=== PATIENT | male | born 1945 | race Caucasian/White ===

== ENCOUNTER → 2020-02-02 14:16 | Outpatient (BNVA) | payer MEDICARE, SELFPAY | PROVIDERS: Visit Provider Nurse Practitioner | DX: F33.1 Major depressive disorder, recurrent, moderate (principal) | CPT/HCPCS: 99214 ==

== ENCOUNTER → 2020-04-26 08:26 | Outpatient (BNVA) | payer MEDICARE, SELFPAY | PROVIDERS: Visit Provider Nurse Practitioner | DX: F33.1 Major depressive disorder, recurrent, moderate (principal) | CPT/HCPCS: 99213 ==

== ENCOUNTER → 2020-07-25 08:35 | Outpatient (BNVA) | payer MEDICARE, SELFPAY | PROVIDERS: Visit Provider Nurse Practitioner | DX: F33.1 Major depressive disorder, recurrent, moderate (principal) | CPT/HCPCS: 99213 ==

== ENCOUNTER → 2020-10-19 07:59 | Outpatient (BNVA) | payer MEDICARE, SELFPAY | PROVIDERS: Visit Provider Nurse Practitioner | DX: F33.1 Major depressive disorder, recurrent, moderate (principal) | CPT/HCPCS: 99213 ==

== ENCOUNTER → 2021-01-16 08:46 | Outpatient (BNVA) | payer MEDICARE, SELFPAY | PROVIDERS: Visit Provider Nurse Practitioner | DX: F33.1 Major depressive disorder, recurrent, moderate (principal) | CPT/HCPCS: 99214 ==

== ENCOUNTER → 2021-03-18 12:55 | Outpatient (BNVA) | payer MEDICARE, SELFPAY | PROVIDERS: Visit Provider Psychiatry & Neurology Psychiatry | DX: F33.1 Major depressive disorder, recurrent, moderate (principal) | CPT/HCPCS: 99215 ==

== ENCOUNTER → 2021-06-24 15:29 | Outpatient (BNVA) | payer MEDICARE, SELFPAY | PROVIDERS: Visit Provider Psychiatry & Neurology Psychiatry | DX: F33.1 Major depressive disorder, recurrent, moderate (principal); R41.3 Other amnesia | CPT/HCPCS: 99214 ==

== ENCOUNTER → 2021-08-22 15:03 | Outpatient (BNVA) | payer MEDICARE, SELFPAY | PROVIDERS: Visit Provider Psychiatry & Neurology Psychiatry | DX: F33.1 Major depressive disorder, recurrent, moderate (principal); R41.3 Other amnesia | CPT/HCPCS: 99214 ==

== ENCOUNTER → 2021-11-14 14:22 | Outpatient (BNVA) | payer MEDICARE, SELFPAY | PROVIDERS: Visit Provider Psychiatry & Neurology Psychiatry | DX: F33.1 Major depressive disorder, recurrent, moderate (principal); R41.3 Other amnesia | CPT/HCPCS: 99214 ==

== ENCOUNTER → 2022-01-30 14:18 | Outpatient (BNVA) | payer MEDICARE, SELFPAY | PROVIDERS: Visit Provider Psychiatry & Neurology Psychiatry | DX: F33.1 Major depressive disorder, recurrent, moderate (principal); R41.3 Other amnesia | CPT/HCPCS: 99214 ==

== ENCOUNTER → 2022-05-01 14:53 | Outpatient (BNVA) | payer MEDICARE, SELFPAY | PROVIDERS: Visit Provider Psychiatry & Neurology Psychiatry | DX: F33.1 Major depressive disorder, recurrent, moderate (principal); R41.3 Other amnesia | CPT/HCPCS: 99214 ==

== ENCOUNTER → 2023-10-05 13:04 | Outpatient (BNVA) | payer OTHER, SELFPAY | PROVIDERS: PCP Family Medicine; Referring Provider Family Medicine; Visit Provider Nurse Practitioner Family | DX: L57.0 Actinic keratosis (principal); L21.8 Other seborrheic dermatitis; Z85.828 Personal history of other malignant neoplasm of skin; L57.8 Other skin changes due to chronic exposure to nonionizing radiation; L81.4 Other melanin hyperpigmentation | CPT/HCPCS: 17000; 99204 ==

== ENCOUNTER 2024-01-25 07:41 | Emergency (ER) | payer OTHER, SELFPAY ==
--- NOTE | 2024-01-25 07:51 | XR_ITS ---
WS: [id number] Exam: XR chest 1V portable [id number] Date/Time of Exam: 01/25/2024 8:36 AM Reason For Exam: dyspnea/cough No priors. The lungs are clear and fully expanded. Heart size top limits normal. The mediastinum is normal in co ntour for technique. No pleural effusions. Several old LEFT rib fractures. Deformity of the distal LE FT clavicle. Degenerative change and levoscoliosis of the T-spine. IMPRESSION: 1. No acute cardiopulmonary finding.
[2024-01-25 07:54] VITALS: BP 223/126; PULSE 82; TEMP 36.3; O2SAT 98; BMI 20.9
--- NOTE | 2024-01-25 08:00 | ECG_ITS ---
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 Measurements Intervals Nunda Rate: 94 P: 0 MN: 0 QRS: 30 QRSD: 150 T: -3 QT: 392 QTc: 490 Interpretive Statements ATRIAL FIBRILLATION RIGHT BUNDLE BRANCH BLOCK [120+ ms QRS DURATION, UPRIGHT V1, 40+ ms S IN I/aVL/V4/V5/V6] No previous ECG available for comparison Electronically Signed On 01-26-2024 0:36:58 OPERATIONS ARCHITECT by Ale Clements M.D. [id number]
--- NOTE | 2024-01-25 08:01 | ED_ITS ---
HPI - General Adult 2 General: Chief complaint: Extremity Problem,Nontraumatic Stated complaint: swelling in feet and legs Time Seen by Provider: 01/25/24 07:51 Source: patient Mode of arrival: ambulatory History of Present Illness: 78-year-old male presents emergency room complaining of bilateral leg swelling and discomfort in his legs been discolored as well as been going on for over a month. He has a history of hypertension states he has a history of Lyme disease has a lot of generalized aches and pains no recent change in medications. States the discomfort is improved now he has been taking all his medications as prescribed. He is a smoker. Associated symptoms: Deny chest pain, dyspnea or rash Review of Systems 2 Const: Denies: fever(s) or chills Card: Denies: chest pain Resp: Denies: dyspnea GI: Denies: abdominal pain : Denies: dysuria, urinary frequency or urinary urgency Musc: Denies: neck pain or back pain Skin/Breast: Denies: rash PFSH ED 2 PFSH: Medical History Psychiatric care Memory deficit Major depressive disorder, recurrent, moderate Social History Smoking and tobacco/nicotine status: current every day tobacco/nicotine user cigarettes Physical Exam 2 Const: COMMON NORMALS: no acute distress GENERAL APPEARANCE: cooperative and comfortable ORIENTATION/CONSCIOUSNESS: Yes awake, Yes oriented to person, Yes oriented to place and Yes oriented to time HENMT: COMMON NORMALS: normocephalic, atraumatic and hearing grossly normal bilaterally HEAD & SCALP: normocephalic and atraumatic Resp: COMMON NORMALS: normal respiratory effort, No retractions, No use of accessory muscles and clear to auscultation bilaterally AUSCULTATION: clear to auscultation bilaterally Cardio: COMMON NORMALS: regular rate, regular rhythm and No murmurs present (Cardio) RATE: regular rate RHYTHM: regular rhythm GI: COMMON NORMALS: Soft to palpation and No hepatosplenomegaly present A USCULTATION: Yes normoactive bowel sounds PALPATION: Yes Soft to palpation, No Tenderness to palpation present (GI), No Guarding due to palpation present (GI) and Yes No hepatosplenomegaly present Extremity: COMMON NORMALS: normal to inspection, capillary refill normal and no calf tenderness OTHER: Venous stasis edema with some drying and scaling of the skin. It still blanches pulses still weakly palpable but difficult because of the swelling. When feet are elevated the violaceous discoloration resolves quickly when placed in a dependent position recurs within seconds. No skin induration or redness or erythema. Neuro: SENSORIUM/ORIENTATION: Yes oriented to person, Yes oriented to place and Yes oriented to time Skin: COMMON NORMALS: no rashes or lesions noted GENERAL SKIN EXAM: no rashes or lesions noted Course 2 Vital Signs: Vital signs: Vital Signs Temperature 97.4 F L 01/25/24 07:54 Pulse Rate 123 H 01/25/24 08:42 Blood Pressure 205/155 01/25/24 08:42 Pulse Oximetry 96 01/25/24 08:42 Oxygen Delivery Me thod Room Air 01/25/24 08:42 MDM - General Adult Medical Decision Making Discoloration to his feet resolves relatively quickly with his feet elevated and when return to a dependent position recurs. He has good arterial blood flow on his segmental measurements by ultrasound. No sign of overt decompensated heart failure at this time he is only been taking Lasix occasionally. Increase to 40 mg daily for the next 5 to 7 days before the end of the week he should follow-up with his primary care doctor for repeat BMP and reevaluate. He is concerned that he had a cellulitis there is no evidence of cellulitis at this time. He does have A-fib but his rate is well-controlled. Patient refused to allow us to treat his blood pressure discussed with him that it is critically high he does not feel it is significant and refuses offers for medication. Encouraged follow-up with his primary care doctor Medical Records I reviewed the patient's medical records. Lab Data I reviewed the patient's lab results. 01/25/24 08:12 01/25/24 08:12 Laboratory Results WBC 7.62 10^3/uL (3.29-11.43) 01/25/24 08:12 RBC 4.37 10^6/uL (3.85-5.65) 01/25/24 08:12 Hgb 14.70 g/dL (11.27-16.99) 01/25/24 08:12 Hct 44.8 % (37-53) 01/25/24 08:12 MCV 102.5 fl (82-101) H 01/25/24 08:12 MCH 33.6 pg (27-33) H 01/25/24 08:12 MCHC 32.8 g/dL (30-55) 01/25/24 08:12 RDW 12.4 % (12.1-15.1) 01/25/24 08:12 Plt Count 232 10^3/cmm (157-399) 01/25/24 08:12 MPV 10.4 fL (7.4-10.4) 01/25/24 08:12 Neut % (Auto) 60.7 % 01/25/24 08:12 Lymph % (Auto) 22.2 % 01/25/24 08:12 Morrison % (Auto) 12.2 % 01/25/24 08:12 Eos % (Auto) 3.7 % 01/25/24 08:12 Baso % (Auto) 0.5 % 01/25/24 08:12 Neut # (Auto) 4.63 10^3/uL (1.8-7.7) 01/25/24 08:12 Lymph # (Auto) 1.7 10^3/uL (0.8-4.8) 01/25/24 08:12 Morrison # (Auto) 0.9 10^3/uL (0.2-0.9) 01/25/24 08:12 Eos # (Auto) 0.3 10^3/uL (0.0-0.8) 01/25/24 08:12 Baso # (Auto) 0.0 10^3/uL (0.0-0.1) 01/25/24 08:12 Nucleated RBC % (auto) 0 % 01/25/24 08:12 Nucleated RBCs # 0.0 /100WBC 01/25/24 08:12 Sodium 132 mmol/L (136-145) L 01/25/24 08:12 Potassium 3.9 mmol/L (3.5-5.1) 01/25/24 08:12 Chloride 94 mmol/L (98-107) L 01/25/24 08:12 Carbon Dioxide 29 mmol/L (22-29) 01/25/24 08:12 Anion Gap 12.9 (5-19) 01/25/24 08:12 BUN 19 mg/dL (8-23) 01/25/24 08:12 Creatinine 0.9 mg/dL (0.7-1.2) 01/25/24 08:12 GFR Calculation Not Reportable 01/25/24 08:12 Glucose 203 mg/dL (65-115) H 01/25/24 08:12 Calculated Osmolality 282 mOsm/kg (285-295) L 01/25/24 08:12 Calcium 9.9 mg/dL (8.5-10.5) 01/25/24 08:12 Total Bilirubin 0.4 mg/dL (0.15-1.2) 01/25/24 08:12 AST 25 U/L (0-40) 01/25/24 08:12 ALT 21 U/L (0-41) 01/25/24 08:12 Alkaline Phosphatase 105 U/L (40-130) 01/25/24 08:12 NT-Pro-B Natriuret Pep 2144 pg/mL (0-450) H 01/25/24 08:12 Total Protein 7.0 g/dL (6.6-8.7) 01/25/24 08:12 Albumin 4.1 g/dL (3.5-5.2) 01/25/24 08:12 Globulin 2.9 g/dL (1.3-4.6) 01/25/24 08:12 All radiology interpretation(s) finalized by discharge Discharge Plan Discharge Patient Disposition: Home Clinical Impression: Severe uncontrolled hypertension, Stasis edema of both lower extremities Condition: Stable Prescriptions: New furosemide 40 mg tablet 40 mg PO DAILY Qty: 30 0RF Discontinued furosemide [Lasix] 20 mg Tablet 20 mg PO DAILY PRN (Reason: Edema) No Action lisinopril 20 mg tablet 10 mg PO DAILY hydrocodone-acetaminophen 10-325 mg tablet 1 tab PO Q6H MDD 4 tabs PRN (Reason: Pain) metoprolol succinate 100 mg tablet extended release 24 hr 100 mg PO DAILY dextroamphetamine-amphetamine [Adderall] 20 mg tablet 20 mg PO TID 30 Days Qty: 90 0RF Hold Instructions: shortage aspirin 325 mg Tablet 325 mg PO DAILY levothyroxine 75 mcg Tablet 75 mcg PO DAILY Flonase 50 mcg/actuation Malcolm,Suspension 2 spray INTRANASAL DAILY Rx Instructions: administer into each nostril Claritin 10 mg Tablet 10 mg PO DAILY Eliquis 5 mg Tablet 5 mg PO BID alogliptin 6.25 mg Tablet 6.25 mg PO QAM Discharge Orders: Discharge ED (Routine); Ordered 01/25/24 Ordered By: Carlos Marie Referrals: Jodie Silva MD [Primary Care Provider] - Discharge Diet: Usual diet Discharge Activity: Increase activity as tolerated Patient Instructions: Opioid Safety, Pain Management Activity Restrictions/Additional Instructions: Thank you for choosing [facility] for your healthcare needs today. Please realize this is an emergency room and that we are providing you with a medical screening exam and this may not be complete and all inclusive of all the testing and or work up that you may need to determine your ailment or severity of your illness. It is very important that you follow up as instructed or that you return to the Emergency Department should you have concerns or if your condition changes or worsens in any way. You were seen today for chronic swelling in her lower extremities and discoloration of your lower extremities. The discoloration and the swelling are result of dependent edema. The discoloration improves rapidly when your feet are elevated and recurs almost immediately when they are returned to a dependent position. Arterial Dopplers showed good blood flow bilaterally in your lower extremities. Recommend you increase your Lasix to 40 mg daily and follow-up with your doctor within the next week for repeat evaluation and repeat of a basic metabolic profile. Additionally while you are in the emergency room your blood pressure was critically elevated. You declined to allow us to treat that. Recommend that you follow-up with your doctor to reevaluate blood pressure management within the next week. Coding Level of Care Code ED Manager Clinical for Walter Trujillo
--- NOTE | 2024-01-25 08:16 | USCV_ITS ---
Stephen Menjivar Age: 78 Gender: M : 1945 Exam Date: 01/25/2024 08:44 Ordering Phys: Carlos Marie DO Technologist: Exam Location: [facility] [place] Indication: cyanosis, pain RIGHT LEFT Brachial 170.00 mmHg Brachial 170.00 mmHg Pressure (mmHg) Waveform Pressure (mmHg) Waveform 160.00 SPICE GRINDER 155.00 155.00 DPA 150.00 0.94 Ankle/Brachial Index 0.91 FINDINGS Resting LOTTIE of 0.94 on the right side and 0.91 on the left CONCLUSIONS 1. Normal CBD on the right side 2. Slightly diminished resting LOTTIE on the left side of 0.91, suggesting mild peripheral artery disease Dr Ale Clements MD [facility] (Electronically Signed) Final Date: 27 January 2024 09:13 S
[2024-01-25 08:25] LABS: Basophils % 0.5 %; Eosinophils # 0.3 10^3/uL (0.0-0.8); Eosinophils % 3.7 %; Hematocrit 44.8 % (37-53); Lymphocytes # 1.7 10^3/uL (0.8-4.8); Lymphocytes % 22.2 %; Mean Corpuscular HGB Conc 32.8 g/dL (30-55); Mean Corpuscular Hemoglobin 33.6 pg (27-33); Mean Corpuscular Volume 102.5 fl (82-101); Mean Platelet Volume 10.4 fL (7.4-10.4); Monocytes # 0.9 10^3/uL (0.2-0.9); Monocytes % 12.2 %; Neutrophils # 4.63 10^3/uL (1.8-7.7); Neutrophils % 60.7 %; Nucleated Red Blood Cells % 0 %; Platelet Count 232 10^3/cmm (157-399); Red Blood Count 4.37 10^6/uL (3.85-5.65); Red Cell Distribution Width 12.4 % (12.1-15.1); White Blood Count 7.62 10^3/uL (3.29-11.43)
[2024-01-25 08:42] VITALS: BP 205/155; PULSE 123; O2SAT 96
--- NOTE | 2024-01-25 08:55 | PC.PHAR ---
Addendum entered by Lacie Howell 01/25/24 10:51: [facility] was discharged-zyprexa 20mg take 1/2 tab (10mg) daily -lisinopril 40mg take 1/2 tab (20mg) daily-lasix 20mg take 1/2 tab (10mg) daily was on the pts [facility] med list pt states he takes those medications entered but va list is different than what pt states he takes-pt states he takes metoprolol succinate er 100mg daily that medication is not on the va med list-va list has zyprexa 20mg take 1/2 tab (10mg) daily Original Note: pt states he takes care of his own medications-pt states he takes the medications entered -faxed [facility] for med list but entered what pt states he takes-waiting for [facility] to fax med list
[2024-01-25 09:00] LABS: Alanine Aminotransferase 21 U/L (0-41); Albumin Level 4.1 g/dL (3.5-5.2); Alkaline Phosphatase 105 U/L (40-130); Anion Gap 12.9 (5-19); Aspartate Amino Transferase 25 U/L (0-40); Blood Urea Nitrogen 19 mg/dL (8-23); Calcium 9.9 mg/dL (8.5-10.5); Carbon Dioxide 29 mmol/L (22-29); Chloride 94 mmol/L (98-107); Globulin 2.9 g/dL (1.3-4.6); Glucose 203 mg/dL (65-115); NT Pro B Type Natriuretic Pept 2144 pg/mL (0-450); Osmolality Calculated 282 mOsm/kg (285-295); Potassium 3.9 mmol/L (3.5-5.1); Sodium 132 mmol/L (136-145); Total Bilirubin 0.4 mg/dL (0.15-1.2)
== END 2024-01-25 09:25 | disposition home or self-care (01) ==
PROVIDERS: Emergency Provider Family Medicine; PCP Family Medicine
DX: I87.303 Chronic venous hypertension (idiopathic) without complications of bilateral lower extremity (principal); I10 Essential (primary) hypertension; Z79.82 Long term (current) use of aspirin; F17.210 Nicotine dependence, cigarettes, uncomplicated
CPT/HCPCS: 36415; 71045; 80053; 83880; 85025; 93005; 93922; 99285

== ENCOUNTER 2025-09-24 15:29 | Inpatient (IN) | payer OTHER, SELFPAY ==
--- OUTSIDE RECORDS SUMMARY | 2025-09-20 10:00 | XMS_ITS ---
Author Organization [facility] Address [address] [place] [address] Care Team Providers Care Zinc Plater Name Role Phone García Gonzalez MD Primary Care Provider Unavail Francisco Sung Unavailable [phone] Allergies Allergen (clinical drug ingredient) Drug/Non Drug Allergy documented on EMR Reaction Allergy Type Onset Date Status NKDA : NO KNOWN DRUG ALLERGIES Unknown Drug Allergy Active Results Component Value Reference Range Flag Notes Urine Confirmation Panel (in strument) - [id number] Reviewed date:09/22/2025 12:43:06 PM Interpretation: Performing Lab: Notes/Report: 6-Acetylmorphine 0 <6 ng/mL N This av t was developed and its performance characteristics determined by [facility]. It has not been cleared or approved by the U.S. Food and Drug Administration. 7-Aminoclonazepam 0 <60 ng/mL N This te st was developed and its performance characteristics determined by [facility]. It has not been cleared or approved by the U.S. Food and Drug Administration. Alprazolam 0 <60 ng/mL N This test was developed and its performance characteristics determined by [facility]. It has not been cleared or approved by the U.S. Food and Drug Administration. Amphetamine 0 <75 ng/mL N This test was developed and its performance characteristics determined by [facility]. It has not been cleared or approved by the U.S. Food and Drug Administration. aOH-Alprazolam 0 <60 ng/mL N This test was developed and its performance characteristics determined by [facility]. It has not been cleared or approved by the U.S. Food and Drug Administration. Buprenorphine 0.0 <7.5 ng/mL N This test w as developed and its performance characteristics determined by [facility]. It has not been cleared or approved by the U.S. Food and Drug Administration. Norbuprenorphine 0.0 <37.5 ng/mL N This te st was developed and its performance characteristics determined by [facility]. It has not been cleared or approved by the U.S. Food and Drug Administration. Carisoprodol 0 <75 ng/mL N This test wa s developed and its performance characteristics determined by [facility]. It has not been cleared or approved by the U.S. Food and Drug Administration. Codeine 0 <75 ng/mL N This test was developed and its performance characteristics determined by [facility]. It has not been cleared or approved by the U.S. Food and Drug Administration. EDDP 0 <75 ng/mL N This test was developed and its performance characteristics determined by [facility]. It has not been cleared or approved by the U.S. Food and Drug Administration. Fentanyl 0 <6 ng/mL N This test was developed and its performance characteristics determined by [facility]. It has not been cleared or approved by the U.S. Food and Drug Administration. Hydrocodone 0 <75 ng/mL N This test was developed and its performance characteristics determined by [facility]. It has not been cleared or approved by the U.S. Food and Drug Administration. Hydromorphone 0 <75 ng/mL N This test w as developed and its performance characteristics determined by [facility]. It has not been cleared or approved by the U.S. Food and Drug Administration. Lorazepam 0 <60 ng/mL N This test was developed and its performance characteristics determined by [facility]. It has not been cleared or approved by the U.S. Food and Drug Administration. MDMA 0 <75 ng/mL N This test was developed and its performance characteristics determined by [facility]. It has not been cleared or approved by the U.S. Food and Drug Administration. Meperidine 0.0 <37.5 ng/mL N This test was developed and its performance characteristics determined by [facility]. It has not been cleared or approved by the U.S. Food and Drug Administration. Meprobamate 0 <75 ng/mL N This test was developed and its performance characteristics determined by [facility]. It has not been cleared or approved by the U.S. Food and Drug Administration. Methamphetamine 0 <75 ng/mL N This test was developed and its performance characteristics determined by [facility]. It has not been cleared or approved by the U.S. Food and Drug Administration. Methadone 0 <75 ng/mL N This test was developed and its performance characteristics determined by [facility]. It has not been cleared or approved by the U.S. Food and Drug Administration. Morphine 0 <75 ng/mL N This test was developed and its performance characteristics determined by [facility]. It has not been cleared or approved by the U.S. Food and Drug Administration. Nordiazepam 0 <60 ng/mL N This test was developed and its performance characteristics determined by [facility]. It has not been cleared or approved by the U.S. Food and Drug Administration. Norfentanyl 0 <6 ng/mL N This test was developed and its performance characteristics determined by [facility]. It has not been cleared or approved by the U.S. Food and Drug Administration. Normeperidine 0.0 <37.5 ng/mL N This test was developed and its performance characteristics determined by [facility]. It has not been cleared or approved by the U.S. Food and Drug Administration. O-desmethyltramadol 0 <75 ng/mL N This test was developed and its performance characteristics determined by [facility]. It has not been cleared or approved by the U.S. Food and Drug Administration. Oxazepam 0 <60 ng/mL N This test was developed and its performance characteristics determined by [facility]. It has not been cleared or approved by the U.S. Food and Drug Administration. Oxycodone >2500.0 <37.5 ng/mL > This test was developed and its performance characteristics determined by [facility]. It has not been cleared or approved by the U.S. Food and Drug Administration. Oxymorphone 591 <75 ng/mL H This test was developed and its performance characteristics determined by [facility]. It has not been cleared or approved by the U.S. Food and Drug Administration. Phencyclidine 0.0 <7.5 ng/mL N This test w as developed and its performance characteristics determined by [facility]. It has not been cleared or approved by the U.S. Food and Drug Administration. Tapentadol 0.0 <37.5 ng/mL N This test was developed and its performance characteristics determined by [facility]. It has not been cleared or approved by the U.S. Food and Drug Administration. Temazepam 0 <60 ng/mL N This test was developed and its performance characteristics determined by [facility]. It has not been cleared or approved by the U.S. Food and Drug Administration. Tramadol 0 <75 ng/mL N This test was developed and its performance characteristics determined by [facility]. It has not been cleared or approved by the U.S. Food and Drug Administration. Norhydrocodone 0 <75 ng/mL N This test was developed and its performance characteristics determined by [facility]. It has not been cleared or approved by the U.S. Food and Drug Administration. Noroxycodone >2500 <38 ng/mL > This test wa s developed and its performance characteristics determined by [facility]. It has not been cleared or approved by the U.S. Food and Drug Administration. Pregabalin 0 <225 ng/mL N This test was developed and its performance characteristics determined by [facility]. It has not been cleared or approved by the U.S. Food and Drug Administration. Gabapentin 0 <225 ng/mL N This test was developed and its performance characteristics determined by [facility]. It has not been cleared or approved by the U.S. Food and Drug Administration. Benzoylecgonine 0.0 <37.5 ng/mL N This av t was developed and its performance characteristics determined by [facility]. It has not been cleared or approved by the U.S. Food and Drug Administration. 4-Hydroxy Xylazine 0 <25 ng/mL N This t est was developed and its performance characteristics determined by [facility]. It has not been cleared or approved by the U.S. Food and Drug Administration. Urine Drug Screen (cup read) - 37725 Reviewed date:09/20/2025 03:34:15 PM Interpretation: Performing Lab: Notes/Report: OXY + REASON FOR VISIT [id number]; 2 Months. UDS. Medications Medication SIG (Take, Route, Frequency, Duration) Notes Start Date End Date Status Metoprolol Tartrate *Pick strength-form from [employer] for eRX* Active oxyCODONE HCl 15 MG Tablet 0.5 tablet Orally every 4 hrs; Duration: 30 days As needed max 3/day Fill on 08-25-2025 08/10/202509/24/202 5 Active Levothyroxine Sodium 100 MCG Tablet 1 tablet in the morning on an empty stomach Orally Once a day Active Dextroamphetamine *Pick strength-form from [employer] for eRX* Not-Taking Glucosamine-Chondroitin *Pick strength-form from [employer] for eRX* Not-Taking Lisinopril 20 MG Tablet 1 tablet Orally Once a day Active SITagliptin 50 MG Tablet 1 tablet Orally Once a day Active PreserVision AREDS A ctive hydroCHLOROthiazide 50 MG Tablet 1 tablet in the morning Orally Once a day Active Social History Sex Assigned At : Social History Observation Description Sex Assigned At Male Social History Additional Details Category Social Info Options Details Migrated Social History Migrated Social History Alcoholic beverages? - No, Currently on disability? - Yes, I am interested in quitting. - No, Smoking - 12/03 PPD, Smoking status (MU) - Current every day smoker, Working currently? 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 ; Pain in left hip M25.552 and halfway (current) use of opiate analgesic Z79.891 Assessments Encounter Date Diagnosis (ICD Code) Assessment Notes Treatment Notes Treatment Clinical Notes Section Notes 09/20/2025 Spondylosis without myelopathy or radiculopathy, cervical region (ICD-10 - M47.812) 09/20/2025 Chronic pain syndrome (ICD-10 - G89.4) Refill oxyCODONE HCl Tablet, 15 MG, 0.5 tablet, Orally, every 4 hrs, As needed max 3/day, 30 days, 90 Tablet, Start Date: 09/22/2025, Stop Date: 10/22/2025, Refills 0, Notes to Pharmacist: Early fill 09/22/25 due to weekend pharmacy closure 09/20/2025 Spondylosis without myelopathy or radiculopathy, 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) 09/20/2025 Spondylosis without myelopathy or radiculopathy, lumbosacral region (ICD-10 - M47.817) 09/20/2025 Pain in left hip (ICD-10 - M25.552) 09/20/2025 halfway (current) use of opiate analgesic (ICD-10 - Z79.891) RECOMMEND URINE TESTING TODAY Urine drug screening will be performed today to monitor compliance with opioid therapy or to serve as a baseline screen for a patient who may be a candidate for opioid therapy in the future, pending UDS results. We will monitor with in-office testing (rapid testing) today and review the results prior to dispensing prescription. All positive results will be sent for quantitative analysis to ensure accuracy and quantify amounts. Any expected positive results that return negative will also be sent for quantitative analysis. Any questionable read or any medication we cannot test for in the office confidently will be sent for quantitative analysis, as well. Patient has been made aware of this policy and agrees to abide by our urine testing policy. 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 We will monitor with in-office testing (rapid testing) today and review the results prior to dispensing prescription. All positive results will be sent for quantitative analysis to ensure accuracy and quantify amounts. Any expected positive results that return negative will also be sent for quantitative analysis. Any questionable read or any medication we cannot test for in the office confidently will be sent for quantitative analysis, as well. Patient has been made aware of this policy and agrees to abide by our urine testing policy. Next Appt Details Provider Name:Jeanette Job Babb, 10/31/2025 02:20:00 PM, [address] [place] [address], [place], [phone], History and Physical Notes * HPI (History of Present Illness) Category Sub-Category Detail Notes Category Not es Provider Note Mr. Menjivar returns to clinic today for a 2 month follow-up evaluation of the continuation of medical management and specifically to review response to current medication change trial. Patient presents today specifically to evaluate response to current medication management regimen change trial. Patient over this clinic interval is proceeded with conversion from utilization of hydrocodone 10/325 every 6 hours as needed not to exceed 4 tablets/day to the utilization of oxycodone 15 mg tablets utilized as 1/2 tablet every 4 hours as needed not to exceed 3 tablets/day. Patient returns today noting that this regimen has been lacking in strength and duration, and he is requesting an increase to 4 tablets a day. He was advised this is not in his best interest at this time. Patient notes that he has been dismissed from the clinic he was receiving his dextroamphetamine/amphet amine prescription from and he is struggling greatly. He reports that he was dismissed due to missing too many office visits. He was advised to follow-up with [place] [facility] in regard to this. Patient is a very disoriented today and appears to be foggy minded and confused. Patient was greatly inquired about this and notes that he was managing well. Again today discussed with patient alternatives of ongoing therapy including consideration of trials of extended release medications. After considering the options available patient elects to continue with current medications at present level. Otherwise patient notes no significant recent change in his general medical condition, and his underlying complaints, or in his response to current medication management regimen over most recent clinic interval. Patient again notes that his desire to continue with medication management is to maintain his functional status as long as possible. Patient's information [place] prescription monitoring program remains consistent. UDS from most recent clinic visit as well as UDS today are noted to be consistent at point of service testing. UDS today will be sent to reference lab for routine confirmation. Medication counts indicate consistency with current dosing schedules. Patient will return to clinic in 2 month to evaluate response to current medication dose increase trial and attempt to establish and monitor stable medical management. Pain Details Pain Location Neck,Mid-Back,Le ft Shoulder,Right Shoulder,Left Knee,Lower Back,Left Leg,Left Foot,Right Foot Quality Sharp/Stabbing,Dull/ Ache,Pins/Cecil,Throbbing,Burn/Tingle Severity of pain at its worst 10 Severity of pain at its best 3 Severity of average pain 4 Severity of pain right now 3 Severity of pain on medication 4 When did you last take your pain medicine 20 Sep 2025, 1320, oxycodone Medication Details Do you have a lock b ox or safe place for medication away from minors and/or others? Yes , Do you have any leftover pain medication building up at your house? No Do you understand that pain medication c an be addicting and can cause overdose? Yes Do you feel you can REDUCE the amount of medication you take today? No Opioid Assessment Tools Pill Count 12 tabs Last Urine Drug Screen 07/24/25 cup read , shows consistent with prescribed medication Today's Rapid Urine Drug Screen will be sent to reference lab for confirmation [place] Prescription Monitoring Program , found to be consistent with treatment history, reviewed today COMM (Current Opioid Misuse Measure) . Treatment History Test undergone in the past MRI scan or CT scan Past medication you have taken NSAIDs; i buprofen, Aleve, Tylenol, sports creams Treatments you have had Rest, ice, heat, stretching, position changes, idyx-mtk-gozofwt medications, heating pad Examination Category Sub-Category Detail Notes Category Not es General Examination General patient is w ell developed, well-nourished, alert and oriented, has good hygiene Cervical Spine Palpation of Cervica l Spine stiff, tender Palpation of Cervical Facets reveals woo n in C3 - C7 region bilaterally Thoracic Spine Palpation of Thoracic Spine reve als tenderness at the thoracic paraspinal muscles noted, reveals tenderness at the facet joint lines noted Range of Motion decreased range of m otion in all pierre due to pain Lumbar Spine Palpation of Lumbar Spine reveal s hyperextension of lumbar spine and bilateral palpitation of lumbar facets reproduces back pain Palpation of Lumbar Intervertebral Space (Discs) there is no pain noted Bilateral Palpation of Sacroiliac Joint reveals no pain Palpation of Greater Trochanteric Bursa reveals no tenderness on both sides Musculoskeletal - Low Back Muscles Trigger Point s no palpable trigger points are noted Gaenslen's Test Negative Neurological Mental Status awake, oriented to person, oriented to place, oriented to time, memory intact, mood and affect are normal Motor Strength Left UE strength - Flexors: 5/5 Right UE strength - Flexors: 5/5 Left UE strength - Extensors: 5/5 Right UE strength - Extensors: 5/5 Left UE Tone: normal Right UE Tone: normal Left LE strength - Flexors: 5/5 Right LE strength - Flexors: 5/5 Left LE strength - Extensors: 5/5 Right LE strength - Extensors: 5/5 Left LE Tone: normal Right LE Tone: normal Progress Notes * EDIE MENJIVAR WDOB:[birth year] (79 yo M)Acc No.[id number]:09/20/2025 Progress Notes Patient: EDIE SYED W Provider: Mary Ellen Santosalli Amorestelle :1945 A ge:79 Y S ex:Male Date:09/20/2025 Address:[address] [place], [place] [id number] Pcp:García Gonzalez MD Check In:03:12 PM [employer] Subjective: * Chief Complaints: * [id number]; 2 Months. UDS. * HPI: P olvin Note: Mr. Menjivar returns to clinic today for a 2 month follow-up evaluation of the continuation of medical management and specifically to review response to current medication change trial. Patient presents today specifically to evaluate response to current medication management regimen change trial. Patient over this clinic interval is proceeded with conversion from utilization of hydrocodone 10/325 every 6 hours as needed not to exceed 4 tablets/day to the utilization of oxycodone 15 mg tablets utilized as 1/2 tablet every 4 hours as needed not to exceed 3 tablets/day. Patient returns today noting that this regimen has been lacking in strength and duration, and he is requesting an increase to 4 tablets a day. He was advised this is not in his best interest at this time. Patient notes that he has been dismissed from the clinic he was receiving his dextroamphetamine/amphetamine prescription from and he is struggling greatly. He reports that he was dismissed due to missing too many office visits. He was advised to follow-up with the [place] in regard to this. Patient is a very disoriented today and appears to be foggy minded and confused. Patient was greatly inquired about this and notes that he was managing well. Again today discussed with patient alternatives of ongoing therapy including consideration of trials of extended release medications. After considering the options available patient elects to continue with current medications at present level. Otherwise patient notes no significant recent change in his general medical condition, and his underlying complaints, or in his response to current medication management regimen over most recent clinic interval. Patient again notes that his desire to continue with medication management is to maintain his functional status as long as possible. Patient's information [place] prescription monitoring program remains consistent. UDS from most recent clinic visit as well as UDS today are noted to be consistent at point of service testing. UDS today will be sent to reference lab for routine confirmation. Medication counts indicate consistency with current dosing schedules. Patient will return to clinic in 2 month to evaluate response to current medication dose increase trial and attempt to establish and monitor stable medical management. P ain Details: Pain Location N lupe,Mid-Back,Left Shoulder,Right Shoulder,Left Knee,Lower Back,Left Leg,Left Foot,Right Foot. Quality S harp/Stabbing,Dull/Ache,Pins/Cecil,Throbbing,Burn/Tingle. Severity of pain at its worst 1 0. Severity of pain at its best 3 . Severity of pain on medication 4 . Severity of average pain 4 . Severity of pain right now 3 . When did you last take your pain medicine 2 31 Aug 2025, 1320, oxycodone. M edication Details: Do you have a lock box or safe place for medication away from minors and/or others? Y es ,. Do you have any leftover pain medication building up at your house? N o . Do you understand that pain medication can be addicting and can cause overdose? Y es . Do you feel you can REDUCE the amount of medication you take today? N o. O pioid Assessment Tools: COMM (Current Opioid Misuse Measure) . Pill Count 1 2 tabs. Last Urine Drug Screen 0 07/24/25 cup read, shows consistent with prescribed medication. Today's Rapid Urine Drug Screen w ill be sent to reference lab for confirmation. [place] Prescription Monitoring Program , found to be consistent with treatment history, reviewed today. T reatment History: Test undergone in the past M RI scan or CT scan. Past medication you have taken N SAIDs; ibuprofen, Aleve, Tylenol, sports creams. Treatments you have had R est, ice, heat, stretching, position changes, blbi-qbs-ddbiaos medications, heating pad. * ROS: G eneral/Constitutional: Fatigue/Tiredness R eports. F ever D enies. R ecent weight gain D enies. R ecent weight loss R eports. R espiratory: Cough D enies. W heezing D enies. S hortness of breath D enies. G astrointestinal: Abdominal pain R eports. C onstipation D enies.?Nausea R eports. V omiting D enies. P sychiatric: Anxiety R eports. D epression R eports. S uicidal thoughts D enies. P anic Attacks R eports. * Screening: * COMM - Current Opioid Misuse Measure: D ocumented By: Domitila Clark core: 12 I nterpretation: Score indicates high risk of abuse behaviors and will be placed on high-risk monitoring. We will monitor every visit with urine drug screening and pill counts, as well as a minimum of 2-3 random urine drug screens per year C OMM - Current Opioid Misuse Measure How often have you had trouble with thinking clearly or had memory problems?Very OftenHow often do people complain that you are not completing necessary tasks? (i.e., doing things that need to be done, such as going to class, work or appointments)SeldomHow often have you had to go to someone other than your prescribing physician to get sufficient pain relief from medications? (i.e., another doctor, the Emergency Room, friends, street sources)NeverHow often have you taken your medications differently from how they are prescribed?SometimesHow often have you seriously thought about hurting yourself?NeverHow much of your time was spent thinking about opioid medications (having enough, taking them, dosing schedule, etc.)?Very OftenHow often have you been in an argument?NeverHow often have you had trouble controlling your anger (e.g., road rage, screaming, etc.)?NeverHow often have you needed to take pain medications belonging to someone else?NeverHow often have you been worried about how you're handling your medications?NeverHow often have others been worried about how you're handling your medications?NeverHow often have you had to make an emergency phone call or show up at the clinic without an appointment?NeverHow often have you gotten angry with people?SeldomHow often have you had to take more of your medication than prescribed?NeverHow often have you borrowed pain medication from someone else?NeverHow often have you used your pain medicine for symptoms other than for pain (e.g., to help you sleep, improve your mood, or relieve stress)?NeverHow often have you had to visit the Emergency Room?Never * Medical History: Arthritis, Depressed, Diabetes, Hypertension, Measles, Medical History Verified * Surgical History: Hip surgery Knee Surgery Surgical History verified. * Family History: M igrated Family History: : Diabetes,Heart disease. F amily History Verified.. * Social History: M igrated Social History: M igrated Social History: Alcoholic beverages? - No, C urrently on disability? - Yes, I am interested in quitting. - No, S moking - 12/03 PPD, S moking status (MU) - Current every day smoker, W orking currently? - No. S ocial History Verified. * Medications: T akinghydroCHLOROthiazide 50 MG Tablet 1 tablet in the morning Orally Once a day Levothyroxine Sodium 100 MCG Tablet 1 tablet in the morning on an empty stomach Orally Once a day Lisinopril 20 MG Tablet 1 tablet Orally Once a day Metoprolol Tartrate , Notes to Pharmacist: *Pick strength-form from [employer] for eRX*oxyCODONE HCl 15 MG Tablet 0.5 tablet Orally every 4 hrs As needed max 3/day, stop date 09/24/2025, Notes to Pharmacist: Fill on [id number] AREDS SITagliptin 50 MG Tablet 1 tablet Orally Once a day Taking hydroCHLOROthiazide 50 MG Tablet 1 tablet in the morning Orally Once a day Taking Levothyroxine Sodium 100 MCG Tablet 1 tablet in the morning on an empty stomach Orally Once a day Taking Lisinopril 20 MG Tablet 1 tablet Orally Once a day Taking Metoprolol Tartrate , Notes to Pharmacist: *Pick strength-form from [employer] for eRX*Taking oxyCODONE HCl 15 MG Tablet 0.5 tablet Orally every 4 hrs As needed max 3/day, stop date 09/24/2025, Notes to Pharmacist: Fill on [id number] PreserVision AREDS Taking SITagliptin 50 MG Tablet 1 tablet Orally Once a day Not-TakingDextroamphetamine , Notes to Pharmacist: *Pick strength-form from [employer] for eRX*Glucosamine-Chondroitin , Notes to Pharmacist: *Pick strength-form from [employer]ispan for eRX*Medication List reviewed and reconciled with the patientNot-Taking Dextroamphetamine , Notes to Pharmacist: *Pick strength-form from [employer]pan for eRX*Not-Taking Glucosamine-Chondroitin , Notes to Pharmacist: *Pick strength-form from [employer]ispan for eRX*Medication List reviewed and reconciled with the patient * Allergies: N KDA : NO KNOWN DRUG ALLERGIES: AllergyyesAllergies Verified. Objective: * Vitals: H t: 72.00 in, Wt:138lbs, Wt-k.6 kg, BMI:18.71Index, Ht-cm: 182.88 cm. * Examination: G eneral Examination: General p atient is well developed, well-nourished, alert and oriented, has good hygiene. L umbar Spine: Palpation of Lumbar Spine r eveals hyperextension of lumbar spine and bilateral palpitation of lumbar facets reproduces back pain. Palpation of Lumbar Intervertebral Space (Discs) t here is no pain noted. Bilateral Palpation of Sacroiliac Joint r eveals no pain.? Palpation of Greater Trochanteric Bursa r eveals no tenderness on both sides. C ervical Spine: Palpation of Cervical Spine s tiff, tender. Palpation of Cervical Facets r eveals pain in C3 - C7 region bilaterally. T horacic Spine: Palpation of Thoracic Spine r eveals tenderness at the thoracic paraspinal muscles noted, reveals tenderness at the facet joint lines noted. Range of Motion d ecreased range of motion in all pierre due to pain. N eurological: Mental Status a wake, oriented to person, oriented to place, oriented to time, memory intact, mood and affect are normal. Motor Strength ? Right UE strength - Flexors /5 ? Left UE strength - E xtensors ? Right UE strength - Extensors /5 ? Left UE Tone n ormal ? Right UE Tone n ormal ? Left LE strength - F lexors 5 /5 ? Right LE strength - Flexors 5 /5 ? Left LE strength - E xtensors 5 /5 ? Right LE strength - Extensors 5 /5 ? Left LE Tone n ormal ? Right LE Tone n ormal ?Musculoskeletal - Low Back Muscles: ?Trigger Points?no palpable trigger points are noted.?Gaenslen's Test?Negative.? Assessment: * Assessment: 1. C hronic pain syndrome - G89.4 (Primary) 2 . S pondylosis without myelopathy or radiculopathy, cervical region - M47.812 3 . S pondylosis without myelopathy or radiculopathy, thoracic region - M47.814 4 . S pondylosis without myelopathy or radiculopathy, lumbosacral region - M47.817 5 . P ain in left hip - M25.552 6 . L keyla term (current) use of opiate analgesic - Z79.891 Plan: * Treatment: 2. L keyla term (current) use of opiate analgesic L AB: Urine Drug Screen (cup read) - 48829 (Collection Date & Time - 09/20/2025) Value Reference Range O XY + ?LAB: Urine Confirmation Panel (instrument) - 64638 (Collection Date & Time - 09/20/2025) Notes: RECOMMEND URINE TESTING TODAY Urine drug screening will be performed today to monitor compliance with opioid therapy or to serve as a baseline screen for a patient who may be a candidate for opioid therapy in the future, pending UDS results. We will monitor with in- office testing (rapid testing) today and review the results prior to dispensing prescription. All positive results will be sent for quantitative analysis to ensureaccuracy and quantify amounts. Any expected positive results that return negative will also be sentfor quantitative analysis. Any questionable read or any medication we cannot test for in the officeconfidently will be sent for quantitative analysis, as well. Patient has been made aware of this policy and agrees to abide by our urine testing policy.?? * Procedure Codes: 8 0305 DRUG TEST PRSMV DIR OPT OBS [id number] DRUG TEST PRSMV CHEM ANLYZR Billing Information: * Procedure Codes: 15886 DRUG TEST PRSMV [place]IR [place]BS [place]. [address]1456 DRUG TEST PRSMV CHEM ANLYZR. Care Plan Details* * Electronic signature of Demond Montesinos APRN on 09/24/2025 at 03:35 PM CDT Sign off status: Pending * Provider: Mary Ellen Montesinos Date: Generated for Chuck webb/Yohana/Bridgette on: 03:35 PM CDT
--- OUTSIDE RECORDS SUMMARY | 2025-09-20 11:13 | XMS_ITS ---
Author Organization [facility] Address [address] [place] [address] Care Team Providers Care Broommaker Name Role Phone García Gonzalez MD Primary Care Provider Unavail Francisco Sung Unavailable [phone] Minal Orellana Unavailable [phone] REASON FOR VISIT IDC refill Medications Medication SIG (Take, Route, Frequency, Duration) Notes Start Date End Date Status oxyCODONE HCl 15 MG Tablet 0.5 tablet Orally every 4 hrs; Duration: 30 days As needed max 3/day [place] NERIS [id number] [place] NERIS [id number] 09/21/2025 10/22/2025 Active Social History Sex Assigned At : Social History Observation Description Sex Assigned At Male Encounters Encounter Location Date Provider Diagnosis [facility] [address] [place] [address] 09/20/2025 Minal Perkins-Candacec e Spondylosis without myelopathy or radiculopathy, cervical region M47.812 Assessments Encounter Date Diagnosis (ICD Code) Assessment Notes Treatment Notes Treatment Clinical Notes Section Notes 09/20/2025 Spondylosis without myelopathy or radiculopathy, cervical region (ICD-10 - M47.812) Plan Of Treatment Medication Medication Name Sig Start Date Stop Date Notes oxyCODONE HCl 15 MG Tablet 0.5 tablet Orally every 4 hrs; Duration: 30 days 09/21/2025 10/22/2025 [place] NERIS [id number] [place] NERIS [id number] Next Appt Details Provider Name:Jeanette Babb, 10/31/2025 02:20:00 PM, [address] [facility] [place], [address], Progress Notes * GREG EDIE WDOB:[birth year] (79 yo M)Acc No.[id number]:09/20/2025 Patient: EDIE SYED :1945 A ge:79 Y S ex:Male Address:[address] [place], [place] [id number] * Refills Refill oxyCODONE HCl Tablet, 15 MG, Orally, 90 Tablet, 0.5 tablet, every 4 hrs, As needed max 3/day, 30 days, Refills=0 Subjective: * Chief Complaints: * I DC refill Assessment: * Assessment: 1. S pondylosis without myelopathy or radiculopathy, cervical region - M47.812 (Primary) ? Plan: * Treatment: * true * Date: Generated for Chuck webb/Yohana/Bridgette on: 03:35 PM CDT
[2025-09-24] VITALS (24 sets, daily range): BP systolic 95–188; BP diastolic 55–121; PULSE 39–84; RESP 13–30; TEMP 36.6; O2SAT 85–99; BMI 18.3; BMI 19.5
--- OUTSIDE RECORDS SUMMARY | 2025-09-24 15:34 | XMS_ITS | Encounter Summary ---
Author Organization [facility] Address [address] 

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
--- OUTSIDE RECORDS SUMMARY | 2025-09-24 15:35 | XMS_ITS | Encounter Summary ---
Author Organization [facility] Address [address] [place] [address] Care Team Providers Care Shop Supervisor Name Role Phone Unavailable Primary Care Provider Unavailabl e Encounter Details Date Type Department Care Team (Late st Contact Info) Description 08/16/2008 Outpatient Historical [facility] DEFAULT DEPARTMENT Tato Haynes MD [address] [facility] [address] [place] [address] Social History Tobacco Use Types Packs/Day Years Used Date Smoking Tobacco: Never Assessed Sex and Gender Information Value Date Recorded Sex Assigned at Not on file Legal Sex Male 4: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
--- OUTSIDE RECORDS SUMMARY | 2025-09-24 15:35 | XMS_ITS | Encounter Summary ---
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
--- OUTSIDE RECORDS SUMMARY | 2025-09-24 15:35 | XMS_ITS | Encounter Summary ---
Author Organization [facility] Address [address] [facility] Attn: Epic Prelude ADT ZAID [place]AMS [address] Care Team Providers Care Therapeutic Specialist Name Role Phone Unavailable Primary Care Provider Unavailabl e Encounter Details Date Type Department Care Team (Late st Contact Info) Description 07/18/2008 Outpatient Historical Luis Daniel Lyles MD NO ADDRESS ON FILE Social History Tobacco Use Types Packs/Day Years Used Date Smoking Tobacco: Never Assessed Sex and Gender Information Value Date Recorded Sex Assigned at Not on file Legal Sex Male 4:45 AM 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 COORDINATOR Gender Identity Not on file Sexual Orientation Not on file documented as of this encounter Plan of Treatment Not on file documented as of this encounter Procedures Procedure Name Priority Date/Time Associated Diagnosis Comments HIV DETECTION W/REFLX CONFIRMATION Routine 07/18/2008 8:25 AM CDT HEPATITIS B SURFACE AB IGG Routine 07/18/2008 8:25 AM CDT HEPATITIS B SURFACE ANTIGEN Routine 07/18/2008 8:25 AM CDT HEPATITIS C ANTIBODY Routine 07/18/2008 8:25 AM CDT documented in this encounter Results * HEPATITIS C ANTIBODY (07/18/2008 8:25 AM CDT) HEPATITIS C AB Non-React raoul Non-React raoul [facility] Comment: HCV antibody testing is performed by enhanced chemiluminescence immunoassay methodology. The CDC recommends that positive HCV antibody tests be confirmed with either RIBA (recombinant immunoblot assay) or PCR testing. The same specimen can be used for RIBA testing and will be held for 7 days. Please contact the Chemistry laboratory if RIBA testing is desired. Blood specimen (specimen) 07/18/2008 8:25 AM CDT 07/20/2008 8:27 AM CDT Narrative INTERFACE SYSTEM - 07/26/2008 12:26 PM CDT attention jamie agosto please bill to [facility] [address] [facility], [address] [place] [address]. [id number] Luis Daniel Lyles MD CHEMISTRY ORDERABLES Final Res ult Performing Organization Address [facility] Phone Number INTERFACE SYSTEM Refer to clinic/hospital department [facility] CLIA# [id number] [address] [place] [address] * HEPATITIS B SURFACE ANTIGEN (07/18/2008 8:25 AM CDT) HEPATITIS B SURFACE AG Non-Reacti ve Non-Reacti ve [facility] Blood specimen (specimen) 07/18/2008 8:25 AM CDT 07/20/2008 8:27 AM CDT Narrative INTERFACE SYSTEM - 07/26/2008 12:26 PM CDT attention jamie agosto please bill to [facility] [address] [place] [address]. [id number] Luis Daniel Lyles MD CHEMISTRY ORDERABLES Final Res ult Performing Organization Address [facility] Phone Number INTERFACE SYSTEM Refer to clinic/hospital department [facility] CLIA# [id number] [address] [place] [address] * HEPATITIS B SURFACE AB IGG (07/18/2008 8:25 AM CDT) HEPATITIS B SURFACE AB Reactive Non-Reacti ve [facility] Blood specimen (specimen) 07/18/2008 8:25 AM CDT 07/20/2008 8:27 AM CDT Narrative INTERFACE SYSTEM - 07/26/2008 12:26 PM CDT attention jamie agosto please bill to [facility] [address] [facility], [address] [place] [address]. [id number] Luis Daniel Lyles MD CHEMISTRY ORDERABLES Final Res ult Performing Organization Address [facility]/State/ZIP Co de Phone Number INTERFACE SYSTEM Refer to clinic/hospital department [facility] CLIA# [id number] [address] [place] [address] * HIV ANTIBODY W/REFLX CONFIRMATION (07/18/2008 8:25 AM CDT) HIV-1 AND 2 ABS Negative Negative [facility] Comment: Test performed by [facility]. Interpretation for HIV Results: Negative result: Negative for antibodies to HIV-1 and HIV-2 by EIA. Reactive result: Repeatedly Reactive for antibodies to HIV-1 and/or HIV-2 by EIA. Due to possible non-specific reactions from other causes, this specimen has been sent for confirmation by Western Blot. Blood specimen (specimen) 07/18/2008 8:25 AM CDT 07/20/2008 8:26 AM CDT Narrative INTERFACE SYSTEM - 07/26/2008 8:41 AM CDT attention jamie agosto please bill to [facility] [address] [place] [address] [facility], [address] [place] [address]. [id number] [place] Luis Daniel Lyles MD CHEMISTRY ORDERABLES Final Res ult INTERFACE SYSTEM Refer to clinic/hospital department [facility] CLIA# [id number] [address] [place] [address] documented in this encounter Visit Diagnoses Not on filedocumented in this encounter
--- OUTSIDE RECORDS SUMMARY | 2025-09-24 15:35 | XMS_ITS | Encounter Summary ---
Author Organization [facility] Address [address] 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
--- OUTSIDE RECORDS SUMMARY | 2025-09-24 15:35 | XMS_ITS | Clinical Summary ---
Author Organization [facility] Address [address] [place] [address] Care Team Providers Care Machine Hand Name Role Phone Unavailable Primary Care Provider Unavailabl e Social History Tobacco Use Types Packs/Day Years Used Date Smoking Tobacco: Never Assessed Sex and Gender Information Value Date Recorded Sex Assigned at Not on file Legal Sex Male 4:45 AM [employer] [place] Gender Identity Not on file Sexual Orientation Not on file Plan of Treatment Health Maintenance Due Date Last Done Comments DTAP/TDAP/TD VACCINES (1 - Tdap) 1964 PNEUMOCOCCAL VACCINE 50+ YEARS (1 of 1 - PCV) 12/12/18 96 ZOSTER VACCINE (1 of 2) 1995 RSV VACCINE (60+ or ) (1 - 1-dose 75+ series) 2020 INFLUENZA VACCINE (#1) 2025 Insurance MEDICARE PART A AND B
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
--- OUTSIDE RECORDS SUMMARY | 2025-09-24 15:36 | XMS_ITS | Encounter Summary ---
Author Organization [facility] Address [address] [place] [address] Care Team Providers Care Leather Currier Name Role Phone Unavailable Primary Care Provider Unavailabl e Encounter Details Date Type Department Care Team (Late st Contact Info) Description 12/11/1999 Outpatient Historical [facility] [address] [address] Teddy Mathews II, DO [facility] Administrative Community Team [address] [place], [place] [id number] Depressive disorder, not elsewhere classified (Primary Dx) Social History Tobacco Use Types Packs/Day Years Used Date Smoking Tobacco: Never Assessed Sex and Gender Information Value Date Recorded Sex Assigned at Not on file Legal Sex Male 4:45 AM [employer] Gender Identity Not on file Sexual Orientation Not on file documented as of this encounter Plan of Treatment Not on file documented as of this encounter Visit Diagnoses Diagnosis Depressive disorder, not elsewhere classified- Primary documented in this encounter
--- OUTSIDE RECORDS SUMMARY | 2025-09-24 15:36 | XMS_ITS | Encounter Summary ---
Author Organization [facility] Address [address] [place] [address] Care Team Providers Care Enamel Finisher Name Role Phone Unavailable Primary Care Provider Unavailabl e Encounter Details Date Type Department Care Team (Late st Contact Info) Description 08/26/1999 Outpatient Historical [facility] Family Medicine [address] [address] Teddy Mathews II, DO [facility] Administrative Community Team [address] [place], [place] [id number] Routine medical exam (Primary Dx) Social History Tobacco Use Types Packs/Day Years Used Date Smoking Tobacco: Never Assessed Sex and Gender Information Value Date Recorded Sex Assigned at Not on file 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
--- OUTSIDE RECORDS SUMMARY | 2025-09-24 15:36 | XMS_ITS | Patient Health Record ---
Author Organization [facility] Address [address] [place] [address] Care Team Providers Care Mandrel Maker Name Role Phone Lisa LUNA, García Primary Care Provider Unavail able Francisco Montesinos Unavailable [phone] Migration, Provider Unavailable Unavailable Jeanette Babb Unavailable [phone] Andrew Hernandez Unavailable [phone] Nando Blanco Unavailable [phone] Minal Orellana Unavailable Amna Marion Unavailable [phone] Allergies Allergen (clinical drug ingredient) Drug/Non Drug Allergy documented on EMR Reaction Allergy Type Onset Date Status NKDA : NO KNOWN DRUG ALLERGIES Unknown Drug Allergy Active Results Component Value Reference Range Flag Notes Urine Drug Screen (cup read) - [id number] Reviewed date:07/24/2025 03:45:30 PM Interpretation: Performing Lab: Notes/Report: AMP + OXY + Urine Drug Screen (cup read) - [id number] Reviewed date:09/20/2025 03:34:15 PM Interpretation: Performing Lab: Notes/Report: OXY + Urine Confirmation Panel (in strument) - [id number] Reviewed date:09/22/2025 12:43:06 PM Interpretation: Performing Lab: [...] by the U.S. Food and Drug Administration. Tox Results Reviewed date:09/22/2025 12:55:03 PM Interpretation: Performing Lab: Notes/Report: Urine Drug Screen (cup read) - [id number] Reviewed date:04/26/2025 04:15:56 PM Interpretation: Performing Lab: Notes/Report: OXY Pos Urine Confirmation Panel (in strument) - [id number] Reviewed date:05/26/2025 01:59:12 PM Interpretation: Performing Lab: Notes/Report: 6-Acetylmorphine 0 [...] the U.S. Food and Drug Administration. Amphetamine >5000 <75 ng/mL > This test was developed and [...] the U.S. Food and Drug Administration. Hydrocodone 1 <75 ng/mL N This test was developed [...] the U.S. Food and Drug Administration. Methamphetamine 40 <75 ng/mL N This test was developed [...] the U.S. Food and Drug Administration. Oxycodone 1606.4 <37.5 ng/mL H This test was developed and its performance characteristics determined by [facility]. It has not been cleared or approved by the U.S. Food and Drug Administration. Oxymorphone 344 <75 ng/mL H This test was developed [...] the U.S. Food and Drug Administration. Norhydrocodone 3 <75 ng/mL N This test was developed [...] Administration. Urine Drug Screen (cup read) - [id number] Reviewed date:05/24/2025 04:40:02 PM Interpretation: Performing Lab: Notes/Report: AMP Pos OXY Pos Tox Results Reviewed date:02/27/2025 02:14:08 PM Interpretation: Performing Lab: Notes/Report: Urine Drug Screen (cup read) - [id number] Reviewed date:12/29/2024 02:58:12 PM Interpretation: Performing Lab: Notes/Report: AMP + Urine Drug Screen (cup read) - [id number] Reviewed date:11/01/2024 10:13:56 AM Interpretation: Performing Lab: Notes/Report: OPI + Urine Drug Screen (cup read) - [id number] Reviewed date:03/21/2025 03:56:13 PM Interpretation: Performing Lab: Notes/Report: AMP + OXY + Urine Drug Screen (cup read) - [id number] Reviewed date:02/23/2025 04:29:06 PM Interpretation: Performing Lab: Notes/Report: AMP Pos OPI Pos Urine Confirmation Panel (in strument) - [id number] Reviewed date:02/27/2025 02:03:07 PM Interpretation: Performing Lab: Notes/Report: 6-Acetylmorphine 0 [...] the U.S. Food and Drug Administration. Amphetamine >5000 <75 ng/mL > This test was developed and [...] the U.S. Food and Drug Administration. Hydrocodone >5000 <75 ng/mL > This test was developed and its performance characteristics determined by [facility]. It has not been cleared or approved by the U.S. Food and Drug Administration. Hydromorphone 479 <75 ng/mL H This test w as developed and its [...] the U.S. Food and Drug Administration. Methamphetamine 8 <75 ng/mL N This test was developed [...] the U.S. Food and Drug Administration. Oxycodone 0.0 <37.5 ng/mL N This test was developed and its performance characteristics determined by [facility]. It has not been cleared or approved by the U.S. Food and Drug Administration. Oxymorphone 0 <75 ng/mL N This test was [...] the U.S. Food and Drug Administration. Tapentadol 9.6 <37.5 ng/mL N This test was developed and its performance characteristics determined by [facility]. It has not been cleared or approved by the U.S. Food and Drug Administration. Temazepam 3 <60 ng/mL N This test was developed and its performance characteristics determined by [facility]. It has not been cleared or approved by the U.S. Food and Drug Administration. Tramadol 0 <75 ng/mL N This test was developed and its performance characteristics determined by [facility]. It has not been cleared or approved by the U.S. Food and Drug Administration. Norhydrocodone 2543 <75 ng/mL H This test was developed and its performance characteristics determined by [facility]. It has not been cleared or approved by the U.S. Food and Drug Administration. Noroxycodone 0 <38 ng/mL N This test wa s developed and its performance characteristics determined by [facility]. It has not been cleared or approved by the U.S. Food and Drug Administration. Pregabalin 0 <225 ng/mL N This test was developed and its performance characteristics determined by [facility]. It has not been cleared or approved by the U.S. Food and Drug Administration. Gabapentin 1 <225 ng/mL N This test was developed and its performance characteristics determined by [facility]. It has not been cleared or approved by the U.S. Food and Drug Administration. Benzoylecgonine 1.4 <37.5 ng/mL N This av t was [...] by the U.S. Food and Drug Administration. Tox Results Reviewed date:05/26/2025 02:17:00 PM Interpretation: Performing Lab: Notes/Report: Reason For Referral No Information Medications Medication SIG (Take, Route, Frequency, Duration) Notes Start Date End Date Status Metoprolol Tartrate *Pick strength-form from [facility] for eRX* Active Levothyroxine Sodium 100 MCG Tablet 1 tablet in the morning on an empty stomach Orally Once a day Active Dextroamphetamine *Pick strength-form from [facility] for eRX* Not-Taking Glucosamine-Chondroitin *Pick strength-form from [facility] for eRX* Not-Taking oxyCODONE HCl 15 MG Tablet 0.5 tablet Orally every 4 hrs; Duration: 30 days As needed max 3/day [place] NERIS [id number] [place] NERIS [id number] 09/21/2025 Active Lisinopril 20 MG Tablet 1 tablet Orally [...] every day smoker, Working currently? 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 [id number] ed Description:Zina nary arteriosclerosis Problem Ischemic cardiomyopathy (878281551) Ischemic cardiomyopathy (I25.5) Active confirmed [id number] ed Description:Gene ralized ischemic myocardial dysfunction Problem Paroxysmal atrial fibrillation (967913194) Paroxysmal atrial fibrillation (I48.0) Active confirmed [id number]-Avn ed Description:Paro xysmal atrial fibrillation Problem Scoliosis (192044658) Scoliosis, unspecified (M41.9) 2023 Active confirmed Problem Cervical spondylosis without myelopathy (690928448) Spondylosis without myelopathy or radiculopathy, cervical region (M47.812) 2023 Active confirmed Problem Thoracic spondylosis without myelopathy (439100469) Spondylosis without myelopathy or radiculopathy, thoracic region (M47.814) 2023 Active confirmed Problem Lumbosacral spondylosis without myelopathy (disorder) (27245598) Spondylosis without myelopathy or radiculopathy, lumbosacral region (M47.817) 2023 Active confirmed Problem Degeneration of cervical intervertebral disc (54885889) Other cervical disc degeneration, unspecified cervical region (M50.30) 2023 Active confirmed Problem Degeneration of thoracic intervertebral disc (70281515) Other intervertebral disc degeneration, thoracic region (M51.34) 2023 Active confirmed Problem Degeneration of lumbosacral intervertebral disc (47432522) Other intervertebral disc degeneration, lumbosacral region (M51.37) 2023 Active confirmed Vital Signs Height-cm 182.88 cm 09/20/2025 Weight-kg 62.6 kg 09/20/2025 Height 72.00 in 09/20/2025 Weight 138 lbs 09/20/2025 BMI 18.71 kg/m2 09/20/2025 Encounters Encounter Location Date Provider Diagnosis [facility] [address] [address] 09/20/2025 Francisco Lively Spondylosis without myelopathy or radiculopathy, cervical region M47.812 ; Chronic pain syndrome G89.4 ; Spondylosis without myelopathy or radiculopathy, thoracic region M47.814 ; Spondylosis without myelopathy or radiculopathy, lumbosacral region M47.817 ; Pain in left hip M25.552 and salvage determiner (current) use of opiate analgesic Z79.891 [facility] [address] [place] [address] 10/31/2024 Francisco Lively Chronic pain syndrome G89.4 ; Spondylosis without myelopathy or radiculopathy, cervical region M47.812 ; Spondylosis without myelopathy or radiculopathy, thoracic region M47.814 ; Spondylosis without myelopathy or radiculopathy, lumbosacral region M47.817 ; Pain in left hip M25.552 ; Scoliosis, unspecified M41.9 and salvage determiner (current) use of opiate analgesic Z79.891 [facility] [address] [place] [address] 12/29/2024 Francisco Chinchillaly Chronic pain syndrome G89.4 ; Spondylosis without myelopathy or radiculopathy, cervical region M47.812 ; Spondylosis without myelopathy or radiculopathy, thoracic region M47.814 ; Spondylosis without myelopathy or radiculopathy, lumbosacral region M47.817 ; Pain in left hip M25.552 ; Scoliosis, unspecified M41.9 and salvage determiner (current) use of opiate analgesic Z79.891 [facility] [address] [place] [address] 02/23/2025 Jeanette Babb Spondylosis without myelopathy or radiculopathy, thoracic region M47.814 ; Chronic pain syndrome G89.4 ; Spondylosis without myelopathy or radiculopathy, cervical region M47.812 ; Spondylosis without myelopathy or radiculopathy, lumbosacral region M47.817 ; Pain in left hip M25.552 ; Scoliosis, unspecified M41.9 and salvage determiner (current) use of opiate analgesic Z79.891 [facility] [address] [place] [address] 03/21/2025 Amna Marion Chronic pain syndrome G89.4 ; Spondylosis without myelopathy or radiculopathy, thoracic region M47.814 ; Spondylosis without myelopathy or radiculopathy, cervical region M47.812 ; Spondylosis without myelopathy or radiculopathy, lumbosacral region M47.817 ; Pain in left hip M25.552 and shelter (current) use of opiate analgesic Z79.891 [facility] [address] [place] [address] 04/26/2025 Jeanette Babb Chronic pain syndrome G89.4 ; Spondylosis without myelopathy or radiculopathy, cervical region M47.812 ; Spondylosis without myelopathy or radiculopathy, thoracic region M47.814 ; Spondylosis without myelopathy or radiculopathy, lumbosacral region M47.817 ; Pain in left hip M25.552 and shelter (current) use of opiate analgesic Z79.891 [facility] [address] [place] [address] 05/24/2025 Jeanette Babb Spondylosis without myelopathy or radiculopathy, cervical region M47.812 ; Chronic pain syndrome G89.4 ; Spondylosis without myelopathy or radiculopathy, thoracic region M47.814 ; Spondylosis without myelopathy or radiculopathy, lumbosacral region M47.817 ; Pain in left hip M25.552 and salvage determiner (current) use of opiate analgesic Z79.891 [facility] [address] [place] [address] 07/24/2025 Francisco Yamel Spondylosis without myelopathy or radiculopathy, cervical region M47.812 ; Chronic pain syndrome G89.4 ; Spondylosis without myelopathy or radiculopathy, thoracic region M47.814 ; Spondylosis without myelopathy or radiculopathy, lumbosacral region M47.817 ; Pain in left hip M25.552 and shelter (current) use of opiate analgesic Z79.891 Migrated_Facility 0 0 09/24/2024 Provider Migration [facility] 0 0 09/25/2024 Provider Migration [facility] [address] [facility] [place] [address] 10/31/2024 Jeanette Holley Chronic pain syndrome G89.4 [facility] [address] [facility] [place] [address] 10/31/2024 Jeanette Holley Chronic pain syndrome G89.4 [facility] [address] [place] [place] [address] 11/28/2024 Nando Bella Chronic pain syndrome G89.4 [facility] [address] [place] [place] [address] 12/29/2024 Jeanette Holley Chronic pain syndrome G89.4 and Spondylosis without myelopathy or radiculopathy, thoracic region M47.814 [facility] [address] [place] [place] [address] 01/24/2025 Jeanette Holley Spondylosis without myelopathy or radiculopathy, thoracic region M47.814 [facility] [address] [place] [place] [address] 03/21/2025 Jeanette Holley Chronic pain syndrome G89.4 [facility] [address] [place] [address] 06/26/2025 Andrew Krafft Spondylosis without myelopathy or radiculopathy, cervical region M47.812 [facility] [address] [place] [place] [address] 07/24/2025 Andrew Krafft Spondylosis without myelopathy or radiculopathy, cervical region M47.812 [facility] [address] [place] [place] [address] 08/10/2025 Jeanette Holley Spondylosis without myelopathy or radiculopathy, cervical region M47.812 [facility] [address] [place] [place] [address] 09/20/2025 Minal Orellana Spondylosis without myelopathy or radiculopathy, cervical region M47.812 Assessments Encounter Date Diagnosis (ICD Code) Assessment Notes Treatment Notes Treatment Clinical Notes Section Notes 09/20/2025 Spondylosis without myelopathy or radiculopathy, cervical region (ICD-10 - M47.812) 08/10/2025 Spondylosis without myelopathy or radiculopathy, cervical region (ICD-10 - M47.812) 09/20/2025 Spondylosis without myelopathy or radiculopathy, cervical region (ICD-10 - M47.812) 07/24/2025 Spondylosis without myelopathy or radiculopathy, cervical region (ICD-10 - M47.812) 06/26/2025 Spondylosis without myelopathy or radiculopathy, cervical region (ICD-10 - M47.812) 03/21/2025 Chronic pain syndrome (ICD-10 - G89.4) 03/21/2025 Chronic pain syndrome (ICD-10 - G89.4) The patient continues with chronic pain requiring treatment to help restore function and improve quality of life. Risks of opioid therapy as well as interaction of opioids with alcohol, illicit drugs, muscle relaxers, and other sedative medications are reviewed briefly with patient again today. The patient has trialed all other reasonable treatment options and uses the medication to alleviate pain in order to remain active and rest with less pain. No clinically relevant medication side effects are noted. Last UDS and [place] [employer] reviewed today. Patient is advised that best long-term goals include increased activity, core strengthening, proper weight management, coping strategies, avoidance of painful triggers, and targeted interventional therapy. We will see the patient for routine follow up in accordance with all clinic policies. We did remind patient today of current guidelines to decrease opioid when possible. We will continue to stress nonopioid treatment. URINE TESTING TODAY; POINT OF SERVICE Urine drug screening will be performed today to monitor compliance with opioid therapy or to serve as a baseline screen for a patient who may be a candidate for opioid therapy in the future, pending UDS results. We will monitor with in-office testing (rapid testing) today and review the results prior to dispensing prescription, as well. Patient has been made aware of this policy. 10/31/2024 Chronic pain syndrome (ICD-10 - G89.4) 10/31/2024 Chronic pain syndrome (ICD-10 - G89.4) 01/24/2025 Spondylosis without myelopathy or radiculopathy, 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) 07/24/2025 Spondylosis without myelopathy or radiculopathy, cervical region (ICD-10 - M47.812) 03/21/2025 Spondylosis without myelopathy or radiculopathy, 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) 02/23/2025 Spondylosis without myelopathy or radiculopathy, 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) 12/29/2024 Chronic pain syndrome (ICD-10 - G89.4) 12/29/2024 Chronic pain syndrome (ICD-10 - G89.4) I had a nice discussion with the patient today in regard to his chronic pain complaints. Patient reports that he is managing well with the help of his medication regimen. Patient denies any serious health changes since his last office visit. He reports that he is doing reasonably well, but is inquiring about a medication change to possibly oxycodone. As it has been approximately a year since Dr. Babb has evaluated the patient I do find it to be appropriate to send the patient back to Dr. Babb for further evaluation before any medication changes occur. We will continue his current medication regimen at this time as compliance was assessed and found to be consistent with care today. Patient will return to clinic in 2 months to continue assessment and evaluation. Patient was offered a 1 month follow-up and deferred and requested to stay with his usual 2-month follow-up. The patient continues with chronic pain requiring treatment to help restore function and improve quality of life. Risks of opioid therapy as well as interaction of opioids with alcohol, illicit drugs, muscle relaxers, and other sedative medications are reviewed briefly with patient again today. The patient has trialed all other reasonable treatment options and uses the medication to alleviate pain in order to remain active and rest with less pain. No clinically relevant medication side effects are noted. Last UDS and [place] [employer] reviewed today. Patient is advised that best long-term goals include increased activity, core strengthening, proper weight management, coping strategies, avoidance of painful triggers, and targeted interventional therapy. We will see the patient for routine follow up in accordance with all clinic policies. We did remind patient today of current guidelines to decrease opioid when possible. We will continue to stress nonopioid treatment. Refill HYDROcodone-A cetaminophen Tablet, 10-325 MG, Orally, 120 Tablet, 1 tablet, every 6 hrs, 30 days, Refills=0 Action sent for second month script 12/29/2024 Spondylosis without myelopathy or radiculopathy, cervical region (ICD-10 - M47.812) 10/31/2024 Spondylosis without myelopathy or radiculopathy, cervical region (ICD-10 - M47.812) 05/24/2025 Spondylosis without myelopathy or radiculopathy, cervical region (ICD-10 - M47.812) 10/31/2024 Chronic pain syndrome (ICD-10 - G89.4) I had a nice discussion with the patient today in regard to his chronic pain complaints. Patient reports that he is managing well with the help of his medication regimen. Patient denies any serious health changes since his last office visit. He reports that he is doing reasonably well, but is concerned about the future when he is unable to drive. He states that this is not currently an issue but is anticipating this to be an issue in the future. We will continue his current medication regimen at this time as compliance was assessed and found to be consistent with care today. Patient will return to clinic in 2 months to continue assessment and evaluation. Continue HYDROcodone-A cetaminophen 10-325 MG Tablet, 120 Tablet, 1 tablet as needed every 6 hrs As needed - Do not exceed 4 tablets per day 30 days, Refills=0 Continue HYDROcodone-A cetaminophen 10-325 MG Tablet, 120 Tablet, 1 tablet as needed every 6 hrs As needed - Do not exceed 4 tablets per day 30 days, Refills=0 04/26/2025 Chronic pain syndrome (ICD-10 - G89.4) The patient continues with chronic pain requiring treatment to help restore function and improve quality of life. Risks of opioid therapy as well as interaction of opioids with alcohol, illicit drugs, muscle relaxers, and other sedative medications are reviewed briefly with patient again today. The patient has trialed all other reasonable treatment options and uses the medication to alleviate pain in order to remain active and rest with less pain. No clinically relevant medication side effects are noted. Last UDS and [place] [employer] reviewed today. Patient is advised that best long-term goals include increased activity, core strengthening, proper weight management, coping strategies, avoidance of painful triggers, and targeted interventional therapy. We will see the patient for routine follow up in accordance with all clinic policies. We did remind patient today of current guidelines to decrease opioid when possible. We will continue to stress nonopioid treatment. URINE TESTING TODAY; POINT OF SERVICE Urine drug screening will be performed today to monitor compliance with opioid therapy or to serve as a baseline screen for a patient who may be a candidate for opioid therapy in the future, pending UDS results. We will monitor with in-office testing (rapid testing) today and review the results prior to dispensing prescription, as well. Patient has been made aware of this policy. 04/26/2025 Spondylosis without myelopathy or radiculopathy, cervical region (ICD-10 - M47.812) 11/28/2024 Chronic pain syndrome (ICD-10 - G89.4) 05/24/2025 Chronic pain syndrome (ICD-10 - G89.4) The patient continues with chronic pain requiring treatment to help restore function and improve quality of life. Risks of opioid therapy as well as interaction of opioids with alcohol, illicit drugs, muscle relaxers, and other sedative medications are reviewed briefly with patient again today. The patient has trialed all other reasonable treatment options and uses the medication to alleviate pain in order to remain active and rest with less pain. No clinically relevant medication side effects are noted. Last UDS and [place] [employer] reviewed today. Patient is advised that best long-term goals include increased activity, core strengthening, proper weight management, coping strategies, avoidance of painful triggers, and targeted interventional therapy. We will see the patient for routine follow up in accordance with all clinic policies. We did remind patient today of current guidelines to decrease opioid when possible. We will continue to stress nonopioid treatment. URINE TESTING TODAY; POINT OF SERVICE Urine drug screening will be performed today to monitor compliance with opioid therapy or to serve as a baseline screen for a patient who may be a candidate for opioid therapy in the future, pending UDS results. We will monitor with in-office testing (rapid testing) today and review the results prior to dispensing prescription, as well. Patient has been made aware of this policy. 04/26/2025 Spondylosis without myelopathy or radiculopathy, 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) 10/31/2024 Spondylosis without myelopathy or radiculopathy, 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) 12/29/2024 Spondylosis without myelopathy or radiculopathy, 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) 03/21/2025 Spondylosis without myelopathy or radiculopathy, cervical region (ICD-10 - M47.812) 02/23/2025 Chronic pain syndrome (ICD-10 - G89.4) I had a nice discussion with the patient today in regard to his chronic pain complaints. Patient reports that he is managing well with the help of his medication regimen. Patient denies any serious health changes since his last office visit. He reports that he is doing reasonably well, but is inquiring about a medication change to possibly oxycodone. As it has been approximately a year since Dr. Babb has evaluated the patient I do find it to be appropriate to send the patient back to Dr. Babb for further evaluation before any medication changes occur. We will continue his current medication regimen at this time as compliance was assessed and found to be consistent with care today. Patient will return to clinic in 2 months to continue assessment and evaluation. Patient was offered a 1 month follow-up and deferred and requested to stay with his usual 2-month follow-up. The patient continues with chronic pain requiring treatment to help restore function and improve quality of life. Risks of opioid therapy as well as interaction of opioids with alcohol, illicit drugs, muscle relaxers, and other sedative medications are reviewed briefly with patient again today. The patient has trialed all other reasonable treatment options and uses the medication to alleviate pain in order to remain active and rest with less pain. No clinically relevant medication side effects are noted. Last UDS and AR TOOL AND DIE DESIGNER reviewed today. Patient is advised that best long-term goals include increased activity, core strengthening, proper weight management, coping strategies, avoidance of painful triggers, and targeted interventional therapy. We will see the patient for routine follow up in accordance with all clinic policies. We did remind patient today of current guidelines to decrease opioid when possible. We will continue to stress nonopioid treatment. Refill HYDROcodone-A cetaminophen Tablet, 10-325 MG, Orally, 120 Tablet, 1 tablet, every 6 hrs, 30 days, Refills=0 Action sent for second month script 09/20/2025 Chronic pain syndrome (ICD-10 - G89.4) Refill oxyCODONE HCl Tablet, 15 MG, 0.5 tablet, Orally, every 4 hrs, As needed max 3/day, 30 days, 90 Tablet, Start Date: 09/22/2025, Stop Date: 10/22/2025, Refills 0, Notes to Pharmacist: Early fill 09/22/25 due to weekend pharmacy closure 07/24/2025 Chronic pain syndrome (ICD-10 - G89.4) The patient continues with chronic pain requiring treatment to help restore function and improve quality of life. Risks of opioid therapy as well as interaction of opioids with alcohol, illicit drugs, muscle relaxers, and other sedative medications are reviewed briefly with patient again today. The patient has trialed all other reasonable treatment options and uses the medication to alleviate pain in order to remain active and rest with less pain. No clinically relevant medication side effects are noted. Last UDS and AR [employer] DIE DESIGNER reviewed today. Patient is advised that best long-term goals include increased activity, core strengthening, proper weight management, coping strategies, avoidance of painful triggers, and targeted interventional therapy. We will see the patient for routine follow up in accordance with all clinic policies. We did remind patient today of current guidelines to decrease opioid when possible. We will continue to stress nonopioid treatment. URINE TESTING TODAY; POINT OF SERVICE Urine drug screening will be performed today to monitor compliance with opioid therapy or to serve as a baseline screen for a patient who may be a candidate for opioid therapy in the future, pending UDS results. We will monitor with in-office testing (rapid testing) today and review the results prior to dispensing prescription, as well. Patient has been made aware of this policy. 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) 02/23/2025 Spondylosis without myelopathy or radiculopathy, cervical region (ICD-10 - M47.812) 12/29/2024 Spondylosis without myelopathy or radiculopathy, lumbosacral region (ICD-10 - M47.817) 12/29/2024 Spondylosis without myelopathy or radiculopathy, 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) 10/31/2024 Spondylosis without myelopathy or radiculopathy, lumbosacral region (ICD-10 - M47.817) 05/24/2025 Spondylosis without myelopathy or radiculopathy, 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) 04/26/2025 Spondylosis without myelopathy or radiculopathy, lumbosacral region (ICD-10 - M47.817) 04/26/2025 Pain in left hip (ICD-10 - M25.552) 10/31/2024 Pain in left hip (ICD-10 - M25.552) 05/24/2025 Spondylosis without myelopathy or radiculopathy, lumbosacral region (ICD-10 - M47.817) 12/29/2024 Pain in left hip (ICD-10 - M25.552) 02/23/2025 Spondylosis without myelopathy or radiculopathy, lumbosacral region (ICD-10 - M47.817) 07/24/2025 Spondylosis without myelopathy or radiculopathy, lumbosacral region (ICD-10 - M47.817) 03/21/2025 Pain in left hip (ICD-10 - M25.552) 09/20/2025 Spondylosis without myelopathy or radiculopathy, lumbosacral region (ICD-10 - M47.817) 07/24/2025 Pain in left hip (ICD-10 - M25.552) 09/20/2025 Pain in left hip (ICD-10 - M25.552) 03/21/2025 shelter (current) use of opiate analgesic (ICD-10 - Z79.891) 02/23/2025 Pain in left hip (ICD-10 - M25.552) 12/29/2024 Scoliosis, unspecified (ICD-10 - M41.9) 10/31/2024 Scoliosis, unspecified (ICD-10 - M41.9) 04/26/2025 salvage determiner (current) use of opiate analgesic (ICD-10 - Z79.891) 05/24/2025 Pain in left hip (ICD-10 - M25.552) 05/24/2025 shelter (current) use of opiate analgesic (ICD-10 - Z79.891) 10/31/2024 shelter (current) use of opiate analgesic (ICD-10 - Z79.891) 12/29/2024 salvage determiner (current) use of opiate analgesic (ICD-10 - Z79.891) 02/23/2025 Scoliosis, unspecified (ICD-10 - M41.9) 09/20/2025 shelter (current) use of opiate analgesic (ICD-10 - [...] to abide by our urine testing policy. 07/24/2025 shelter (current) use of opiate analgesic (ICD-10 - Z79.891) 02/23/2025 salvage determiner (current) use of opiate analgesic (ICD-10 - Z79.891) Plan Of Treatment Next Appt Details Provider Name:Jeanette Babb, 10/31/2025 02:20:00 PM, [address] [place] [address], [phone], Insurance Providers Payer Name Payer Address Payer Phone Subscriber Number Group Number Insured Name Patient Relationship to Insured Coverage Start Date Coverage End Date [employer] [address] [place] [phone] [id number] EDIE GARZA Self - patient is the insured Medical (General) History Medical History History ICD Code Arthritis, Depressed, Diabetes, Hypertension, Measles, Surgical History Surgery Date(Month/Year) Hip surgery Knee Surgery Hospitalization History Reason Date(Month/Year)
--- OUTSIDE RECORDS SUMMARY | 2025-09-24 15:36 | XMS_ITS | Encounter Summary ---
Author Organization [facility] Address [address] [place] [address] Care Team Providers Care Cash Person Name Role Phone Unavailable Primary Care Provider Unavailabl e Encounter Details Date Type Department Care Team (Late st Contact Info) Description 01/09/2000 Outpatient Historical [facility] [address] [id number] Teddy Mathews II, DO [facility] Administrative Community Team [id number] [place] [address] Benign neoplasm of skin, site unspecified (Primary Dx); Rosacea; Unspecified tinnitus; Depressive disorder, not elsewhere classified Social History Tobacco Use Types Packs/Day Years Used Date Smoking Tobacco: Never Assessed Sex and Gender Information Value Date Recorded Sex Assigned at Not on file 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
--- NOTE | 2025-09-24 15:44 | W.ED.WEAKNES ---
HPI - Weakness General: Chief complaint: Weakness Stated complaint: weakness Time Seen by Provider: 09/24/25 15:30 History of Present Illness: Patient is a 79-year-old gentleman that reports here via EMS that increasing weakness over 1 month. Apparently was dismissed from his [facility] due to missing an appointment / mixing it up. [facility] Content: He was on Adderall, and now he has no strength, ongoing weakness. He states he feels like he does hardly walk move without Adderall. His blood glucose was 240 today, however he has his diabetic medications, but he did not take them today due to weakness. He does have his other medications other than the Adderall. He does not have any monitor neurological weakness, just directly with his lower extremities and not feeling well. Denies any dysuria, fevers. Admits to 13 pound weight loss since losing his Adderall. Medications he has not taken today: Eliquis, levothyroxine, lisinopril, hydrochlorothiazide, semaglutide Medication he took today: Metoprolol Associated symptoms: Denies chest pain, chills, dysuria, fever(s) or headache(s) Related Data Home Medications ?Medication ?Instructions ?Recorded ?Confirmed lisinopril 20 mg tablet 20 mg PO DAILY 02/02/20 09/24/25 apixaban 5 mg tablet (Eliquis) 5 mg PO BID 01/25/24 09/24/25 loratadine 10 mg tablet (Claritin) 10 mg PO DAILY 01/25/24 09/24/25 empagliflozin 25 mg tablet 12.5 mg PO DAILY 09/24/25 09/24/25 (Jardiance) levothyroxine 100 mcg tablet 100 mcg PO DAILY 09/24/25 09/24/25 metoprolol succinate 200 mg 100 mg PO DAILY 09/24/25 09/24/25 tablet,extended release 24 hr oxycodone 15 mg tablet 15 mg PO Q4H 09/24/25 09/24/25 propylene glycol (PF) 0.6 % eye 1 drp ophthalmic (eye) DAILY 09/24/25 09/24/25 drops in a dropperette (Systane Complete PF) sitagliptin 50 mg tablet 50 mg PO DAILY 09/24/25 09/24/25 vit C 250 mg-vit E 90 mg-zinc 40 1 cap PO BID 09/24/25 09/24/25 mg-copper 1 [id number] capsule (PreserVision AREDS-2) Previous Rx's ?Medication ?Instructions ?Recorded dextroamphetamine-amphetamine 20 20 mg PO TID 30 days #90 tabs 06/30/25 mg tablet (Adderall) Allergies Allergy/AdvReac Type Severity Reaction Status Date / Time No Known Allergies Allergy Verified 08/30/24 16:02 Review of Systems Const: Denies: fever(s) or chills Card: Denies: chest pain Resp: Denies: dyspnea GI: Denies: abdominal pain : Denies: dysuria, urinary frequency or urinary urgency Musc: Denies: neck pain or back pain Skin/Breast: Denies: rash Neuro: Reports: weakness in extremities; Denies: headache(s), numbness in extremities, dizziness, seizure-like activity or involuntary movements Psych: Reports: anxiety; Denies: depression PFS ED PFSH: Medical History (Updated 09/24/25 @ 17:40 by Richelle Dow MD) Psychiatric care Memory deficit Major depressive disorder, recurrent, moderate Social History Smoking and tobacco/nicotine status: current every day tobacco/nicotine user cigarettes Physical Exam Const: COMMON NORMALS: no acute distress GENERAL APPEARANCE: cooperative and comfortable ORIENTATION/CONSCIOUSNESS: Yes awake, Yes oriented to person, Yes oriented to place and Yes oriented to time HENMT: COMMON NORMALS: normocephalic, atraumatic and hearing grossly normal bilaterally HEAD & SCALP: normocephalic and atraumatic OTHER: Dry oromucosa. Neck/C-Spine: COMMON NORMALS: full ROM, no lymphadenopathy, supple and no meningeal signs GENERAL: Yes normal visual inspection Lymph: LYMPHATIC: no lymphadenopathy noted Resp: COMMON NORMALS: normal respiratory effort, No retractions, No use of accessory muscles and clear to auscultation bilaterally AUSCULTATION: clear to auscultation bilaterally Cardio: COMMON NORMALS: regular rate, regular rhythm and No murmurs present (Cardio) RATE: regular rate RHYTHM: regular rhythm GI: COMMON NORMALS: Soft to palpation and No hepatosplenomegaly present AUSCULTATION: Yes normoactive bowel sounds PALPATION: Yes Soft to palpation, No Tenderness to palpation present (GI), No Guarding due to palpation present (GI) and Yes No hepatosplenomegaly present : COMMON NORMALS: Yes no CVA tenderness BLADDER/KIDNEY EXAM: Yes no CVA tenderness Back/Pelvis: COMMON NORMALS: no CVA tenderness Extremity: COMMON NORMALS: normal to inspection, capillary refill normal and no calf tenderness Neuro: SENSORIUM/ORIENTATION: Yes oriented to person, Yes oriented to place and Yes oriented to time MENINGEAL SIGNS: Yes no meningeal signs OTHER: Slow to respond at times. Skin: COMMON NORMALS: no rashes or lesions noted GENERAL SKIN EXAM: no rashes or lesions noted Course Consultations: Consultation #1: Accepted by Dr. Dow Vital Signs: Vital signs: Vital Signs Temperature 97.8 F 09/24/25 15:29 Pulse Rate 75 09/24/25 15:29 Respiratory Rate 16 09/24/25 15:29 Blood Pressure 188/121 09/24/25 15:29 Pulse Oximetry 97 09/24/25 15:29 Oxygen Delivery Me thod Room Air 09/24/25 15:29 MDM - Weakness Medical Decision Making Patient is a 9-year-old gentleman with hypertension, diabetic, reports to the emergency room with ongoing weakness. This is worsening. Routine workup as noted severe hyponatremia with a sodium of 110. Patient is on hydrochlorothiazide, however he has not taken his hydrochlorothiazide today. Blood glucose is slightly elevated at 182, however he has not taken his semaglutide today. He is also of note on chronically on lisinopril, which thank goodness he has held this to since it is a low level player with hyponatremia. Plan is admission, slow IV fluids, feeding patient. Caution on replacement of sodium since patient does not have any current seizures, and overhydration can cause central pontine demyelination as well as quick correction. Will place patient on normal saline at 125 mL, and obtain repeat BMP, as well as urine sodium and osmolality. I do suspect hypovolemic hyponatremia given his hydrochlorothiazide use. Uric acid, phosphorus, TSH, cortisol, and chest x-ray pending. will call hospitalist for further recommendations. Dr. Dow has excepted patient however would like 3% normal saline 30 mL/h x 4 hours and repeat BMP. Repeat BMP is ordered for 1829, and 2129. ICU admission. Dr. Dow Medical Records I reviewed the patient's medical records. Lab Data I reviewed the patient's lab results. 09/24/25 16:02 09/24/25 16:02 Laboratory Results WBC 14.04 10^3/uL (3.29-11.43) H 09/24/25 16:02 RBC 4.05 10^6/uL (3.85-5.65) 09/24/25 16:02 Hgb 14.50 g/dL (11.27-16.99) 09/24/25 16:02 Hct 39.6 % (37-53) 09/24/25 16:02 MCV 97.8 fl (82-101) 09/24/25 16:02 MCH 35.8 pg (27-33) H 09/24/25 16:02 MCHC 36.6 g/dL (30-55) 09/24/25 16:02 RDW 13.3 % (12.1-15.1) 09/24/25 16:02 Plt Count 188 10^3/cmm (157-399) 09/24/25 16:02 MPV 9.2 fL (7.4-10.4) 09/24/25 16:02 Neut % (Auto) 85.6 % 09/24/25 16:02 Lymph % (Auto) 4.0 % 09/24/25 16:02 [place] % (Auto) 9.4 % 09/24/25 16:02 Eos % (Auto) 0.0 % 09/24/25 16:02 Baso % (Auto) 0.1 % 09/24/25 16:02 Neut # (Auto) 12.01 10^3/uL (1.8-7.7) H 09/24/25 16:02 Lymph # (Auto) 0.6 10^3/uL (0.8-4.8) L 09/24/25 16:02 [place] # (Auto) 1.3 10^3/uL (0.2-0.9) H 09/24/25 16:02 Eos # (Auto) 0.0 10^3/uL (0.0-0.8) 09/24/25 16:02 Baso # (Auto) 0.0 10^3/uL (0.0-0.1) 09/24/25 16:02 Nucleated RBC % (auto) 0 % 09/24/25 16:02 Nucleated RBCs # 0.0 /100WBC 09/24/25 16:02 Sodium 110 mmol/L (136-145) L* 09/24/25 16:02 Potassium 4.1 mmol/L (3.5-5.1) 09/24/25 16:02 Chloride 73 mmol/L (98-107) L 09/24/25 16:02 Carbon Dioxide 26 mmol/L (22-29) 09/24/25 16:02 Anion Gap 15.1 (5-19) 09/24/25 16:02 BUN 14 mg/dL (8-23) 09/24/25 16:02 Creatinine 0.7 mg/dL (0.7-1.2) 09/24/25 16:02 GFR Calculation Not Reportable 09/24/25 16:02 Glucose 182 mg/dL (65-115) H 09/24/25 16:02 Calculated Osmolality 235 mOsm/kg (285-295) L 09/24/25 16:02 Uric Acid 2.4 mg/dL (3.4-7.0) L 09/24/25 16:02 Calcium 9.0 mg/dL (8.5-10.5) 09/24/25 16:02 Phosphorus 2.4 mg/dL (2.5-4.5) L 09/24/25 16:02 Total Bilirubin 1.2 mg/dL (0.15-1.2) 09/24/25 16:02 AST 29 U/L (0-40) 09/24/25 16:02 ALT 21 U/L (0-41) 09/24/25 16:02 Alkaline Phosphatase 118 U/L (40-130) 09/24/25 16:02 Total Protein 6.8 g/dL (6.6-8.7) 09/24/25 16:02 Albumin 4.0 g/dL (3.5-5.2) 09/24/25 16:02 Globulin 2.8 g/dL (1.3-4.6) 09/24/25 16:02 TSH 3.45 uIU/mL (0.27-4.20) 09/24/25 16:02 Random Cortisol 20.34 ug/dL (2.47-19.5) H 09/24/25 16:02 Urine Color Yellow (Yellow) 09/24/25 16:34 Urine Appearance Clear (CLEAR) 09/24/25 16:34 Urine pH 6.5 (5-7) 09/24/25 16:34 Ur Specific [place] 1.006 (1.005-1.030) 09/24/25 16:34 Urine Protein Negative (Negative) 09/24/25 16:34 Urine Glucose (UA) Trace (Normal) H 09/24/25 16:34 Urine Ketones Trace (Negative) 09/24/25 16:34 Urine Blood Negative (Negative) 09/24/25 16:34 Urine Nitrate Negative (Negative) 09/24/25 16:34 Urine Bilirubin Negative (Negative) 09/24/25 16:34 Urine Urobilinogen 0.2 mg/dL (Negative) 09/24/25 16:34 Ur Leukocyte Esterase Negative (Negative) 09/24/25 16:34 Urine RBC 0-2 /hpf (0-2) 09/24/25 16:34 Urine WBC 0-5 /hpf (0-5) 09/24/25 16:34 Ur Squamous Epith Cells 0-5 /hpf (0-5) 09/24/25 16:34 Amorphous Sediment Not Reportable 09/24/25 16:34 Urine Bacteria None seen /hpf (NONE) 09/24/25 16:34 Hyaline Casts 0-4 /lpf H 09/24/25 16:34 Ur Random Sodium 32 mmol/L 09/24/25 16:34 Urine Opiates Screen Negative ng/mL (Negative) 09/24/25 16:34 Ur Barbiturates Screen Negative ng/mL (Negative) 09/24/25 16:34 Ur Phencyclidine Scrn Negative ng/mL (Negative) 09/24/25 16:34 Ur Amphetamines Screen Negative ng/mL (Negative) 09/24/25 16:34 U Benzodiazepines Scrn Negative ng/mL (Negative) 09/24/25 16:34 Urine Cocaine Screen Negative ng/mL (Negative) 09/24/25 16:34 U Marijuana (THC) Screen Negative ng/mL (Negative) 09/24/25 16:34 XR interpretation done by ED provider, pending radiology final review Discharge Plan Discharge Patient Disposition: Admitted As Inpatient Clinical Impression: Acute hyponatremia Condition: Stable Discharge Diet: Usual diet Discharge Activity: Limit activity as instructed Coding Level of Care Code ED Deposition Reporter for Walter Trujillo
[2025-09-24 16:12] LABS: Hematocrit 39.6 % (37-53); Hemoglobin 14.50 g/dL (11.27-16.99); Mean Corpuscular HGB Conc 36.6 g/dL (30-55); Mean Corpuscular Hemoglobin 35.8 pg (27-33); Mean Corpuscular Volume 97.8 fl (82-101); Nucleated Red Blood Cells % 0 %; Platelet Count 188 10^3/cmm (157-399); Red Blood Count 4.05 10^6/uL (3.85-5.65); White Blood Count 14.04 10^3/uL (3.29-11.43)
[2025-09-24 16:24] LABS: Alanine Aminotransferase 21 U/L (0-41); Albumin Level 4.0 g/dL (3.5-5.2); Alkaline Phosphatase 118 U/L (40-130); Anion Gap 15.1 (5-19); Aspartate Amino Transferase 29 U/L (0-40); Blood Urea Nitrogen 14 mg/dL (8-23); Calcium 9.0 mg/dL (8.5-10.5); Carbon Dioxide 26 mmol/L (22-29); Chloride 73 mmol/L (98-107); Creatinine Clr Calc Pharmacy 64.8496; Globulin 2.8 g/dL (1.3-4.6); Glucose 182 mg/dL (65-115); Osmolality Calculated 235 mOsm/kg (285-295); Potassium 4.1 mmol/L (3.5-5.1); Total Protein 6.8 g/dL (6.6-8.7)
[2025-09-24 16:39] LABS: Glucose Urine UA Trace (Normal); Nitrate Urine Negative (Negative); Specific Gravity, Urine 1.006 (1.005-1.030)
[2025-09-24 16:43] LABS: Sodium 110 mmol/L (136-145)
[2025-09-24 16:44] LABS: Add Urine Microscopic? YES
--- NOTE | 2025-09-24 17:12 | XRR_ITS ---
PROCEDURE INFORMATION: Exam: XR Chest Exam date and time: 09/24/2025 5:20 PM Age: 79 years old Clinical indication: Abnormal findings; Abnormal diagnostic tests; Other: Hyponatremia TECHNIQUE: Imaging protocol: Radiologic exam of the chest. Views: 1 view. COMPARISON: CR XR chest 1V portable [id number] 01/25/2024 8:31 AM FINDINGS: Lungs: Small focal opacity in the right lateral lower lung field partially obscured by the diaphragm may represent atelectasis. Pleural spaces: Unremarkable. No pleural effusion. No pneumothorax. Heart/Mediastinum: Stable borderline cardiomegaly. Bones/joints: Unremarkable. XR/XR chest 1V portable [id number] IMPRESSION: Small focal opacity in the right lateral lower lung field partially obscured by the diaphragm may represent atelectasis. No major consolidation.
[2025-09-24 17:19] LABS: Urine Random Sodium 32 mmol/L
[2025-09-24 17:24] LABS: Thyroid Stimulating Hormone 3.45 uIU/mL (0.27-4.20); Uric Acid 2.4 mg/dL (3.4-7.0)
[2025-09-24 17:25] LABS: PCP Screen Urine Negative (Negative)
--- NOTE | 2025-09-24 17:38 | PM.HP ---
Providers/Chief Complaint Admitting Physician: Richelle Dow Primary Care Provider: Jodie Silva MD Chief Complaint: weakness History of Present Illness As per the previous notes and the patient Stephen Menjivar is a 79 year old male with past medical history of hypothyroidism, apixaban for atrial fibrillation, diabetes mellitus, hypertension, memory deficit, presented with, increasing weakness over 1 month. He has been on Adderall and requires Adderall for his proper functioning. The patient also reported that he ran out of his Adderall for more than a month and he was unable to take his rest of his medications including levothyroxine apixaban and rest of the medications accordingly since he was missing the doses and could not remember to take it. The patient did not report any fevers, chills, shortness of breath, abdominal pain, diarrhea in the recent few days. However he was mildly nauseous from the last 1 to 2 days. There was no change in his urinary or bowel habits. Patient also reported poor appetite and getting weaker and weaker from more than a month or so. He lives alone and there is no one to take care of him. No orthopnea or PND Rest of the review of system unremarkable Review of Systems General: Reports: 10 or more systems reviewed and unremarkable except in HPI and below Medications/Allergies Home Medications ?Medication ?Instructions ?Recorded ?Confirmed ?Last Taken ?Type lisinopril 20 mg tablet 20 mg PO DAILY 02/02/20 09/24/25 Unknown History apixaban 5 mg tablet (Eliquis) 5 mg PO BID 01/25/24 09/24/25 01/24/24 History loratadine 10 mg tablet (Claritin) 10 mg PO DAILY 01/25/24 09/24/25 Unknown History dextroamphetamine-amphetamine 20 20 mg PO TID 30 days #90 tabs 06/30/25 09/24/25 Unknown Rx mg tablet (Adderall) empagliflozin 25 mg tablet 12.5 mg PO DAILY 09/24/25 09/24/25 Unknown History (Jardiance) levothyroxine 100 mcg tablet 100 mcg PO DAILY 09/24/25 09/24/25 Unknown History metoprolol succinate 200 mg 100 mg PO DAILY 09/24/25 09/24/25 09/24/25 08:00 History tablet,extended release 24 hr oxycodone 15 mg tablet 15 mg PO Q4H 09/24/25 09/24/25 Unknown History propylene glycol (PF) 0.6 % eye 1 drp ophthalmic (eye) DAILY 09/24/25 09/24/25 Unknown History drops in a dropperette (Systane Complete PF) sitagliptin 50 mg tablet 50 mg PO DAILY 09/24/25 09/24/25 Unknown History vit C 250 mg-vit E 90 mg-zinc 40 1 cap PO BID 09/24/25 09/24/25 Unknown History mg-copper 1 [id number] capsule (PreserVision AREDS-2) Allergies Allergy/AdvReac Type Severity Reaction Status Date / Time No Known Allergies Allergy Verified 08/30/24 16:02 PFSH Acute PFSH: Medical History (Updated 09/24/25 @ 18:30 by Richelle Dow MD) Psychiatric care Memory deficit Major depressive disorder, recurrent, moderate Social History Smoking and tobacco/nicotine status: current every day tobacco/nicotine user cigarettes Vitals/I&O/Wt Last Vital Signs Temp 97.8 F 09/24/25 15:29 Pulse 75 09/24/25 15:29 Resp 16 09/24/25 15:29 BP 188/121 09/24/25 15:29 Pulse Ox 97 09/24/25 15:29 O2 Del Method Room Air 09/24/25 15:29 Weight last 48 hrs Weight 61.235 kg Physical Exam Narrative: General: Alert and oriented, lying comfortably without any distress, the patient looks generalized weak and cachectic with features of malnourishment and is unkempt, looks dry HEENT: Normocephalic, atraumatic, grossly unremarkable exam Cardio: normal rate rhythm, normal S1-S2 without any murmurs, rubs, or gallops and JVD normal Respiratory: normal vascular breathing on auscultation without any wheezes, stridor, rhonchi GI: Abdomen soft, nontender, nondistended, normoactive bowel sounds present all 4 quadrants, Neuro: Grossly neurological examination unremarkable t, delayed reflexes appreciated Behavior: Appropriate and cooperative Extremities: Adequate pulses with lower extremities chronic skin changes and bilateral pitting edema, Data 09/24/25 16:02 09/24/25 16:02 A&P Assessment and plan 1. Acute hyponatremia: Patient presented with severe generalized weakness for more than a month is unable to take his medication including Adderall and levothyroxine. Considering hyponatremia of 110 which is severe hyponatremia with symptoms to start the patient on hypertonic saline with BMP every 4 hours. sent for hyponatremia workup including urine studies and serum osmolality and to follow Target correction of sodium in 6 to 8 mEq per 24 hours and if patient is overcorrected then to address with dextrose versus desmopressin. If sodium level is achieved earlier for target correction in 24 hours then to hold the hypertonic saline and monitor the next BMP. 2. Memory deficit: Likely related to his underlying condition requiring Adderall hypothyroid for which he did not take his medications 3. Hypothyroidism: TSH normal Continue his home dose of levothyroxine 100 mcg daily 4. Hypertension: To start the patient on lisinopril 20 mg daily and empagliflozin 12.5 mg daily 5. Severe malnutrition: Dietitian consult and follow the recommendation 6. Atrial fibrillation: Continue apixaban and metoprolol 100 mg daily 7. Encounter for screening involving social determinants of health (SDoH): Patient lives alone and has memory issues and therefore need family caseworker on board to help with his further safe disposition PDMP PDMP Reviewed: Not Reviewed Attestations Medical Necessity Statement*: Patient will stay more than 2 midnights for monitoring and management of his severe hyponatremia. Time Spent in Patient Care: 16 - 35 minutes (>than 50% of time spent in counselling and/or direct pt care on unit). Critical Care Time: The high probability of a clinically significant, sudden or life threatening deterioration, as referenced in this documentation, required my full and direct attention, intervention and personal management. The critical care time shown is in addition to time spent performing any reported separately billable procedures and includes the following: [x] Data and vital sign review and interpretation [x] Patient assessment, examination and intervention [x] Medication orders and management [x] Patient/Family updates as able [x] Care Coordination and Documentation. Critical Care Time (min): 35 Other Attestations: Patient condition has been discussed at length with the patient/family, I have independently reviewed the chart labs imaging/diagnostics/EKG. the goals of care and code status with the patient/family/NOK/legal customer service representative teller, and documented accordingly. The patient/family has been informed about the current condition and further plan of care. Agreed with the plan of care and understood without any language barrier. Every effort was made to ensure accuracy of proposal editor. Any obvious errors or omissions should be clarified with the author of the document. Coding Level of Care Code Critical Care >/= 30 minutes Diagnoses Acute hyponatremia E87.1 Memory deficit R41.3 Hypothyroidism E03.9 Hypertension I10 Severe malnutrition E43 Atrial fibrillation I48.91 Encounter for screening involving social determinants of health (SDoH) Z13.9
[2025-09-24] MEDS: FLEXIBLE CONTAINER IV (17:41)
[2025-09-24] MEDS: SODIUM CHLORIDE 3% IV (17:41)
[2025-09-24 19:13] LABS: Anion Gap 13.5 (5-19); Blood Urea Nitrogen 13 mg/dL (8-23); Calcium 9.1 mg/dL (8.5-10.5); Carbon Dioxide 28 mmol/L (22-29); Chloride 79 mmol/L (98-107); Cholesterol 169 mg/dL (0-200); Creatinine Clr Calc Pharmacy 64.8496; Glucose 149 mg/dL (65-115); HDL Cholesterol 126 mg/dL (60-100); Magnesium 1.6 mg/dL (1.7-2.3); Osmolality Calculated 245 mOsm/kg (285-295); Potassium 4.5 mmol/L (3.5-5.1); Triglycerides 33 mg/dL (0-150)
[2025-09-24 19:21] LABS: Sodium 116 mmol/L (136-145)
--- NOTE | 2025-09-24 19:43 | PM.CONSULT ---
Providers/Reason For Consult Consulting Physician/Specialty*: kommana/nephrology Reason for Consult*: hyponatremia Attending Physician: Richelle Dow MD Primary Care Provider: Jodie Silva MD History of Present Illness History of Present Illness Stephen Menjivar is a 79 year old male Patient is a 79-year-old male with past medical history of hypothyroidism, atrial fibrillation, diabetes hypertension, chronic memory deficits, presented to the emergency department complaining of generalized weakness, poor p.o. intake, poor appetite going on for the last 1 to 2 months. Patient states that he takes Adderall but he ran out of the medication about a month ago and since then his appetite has gotten much worse. Vital signs in the ED has showed blood pressure of 188/121. Lab data significant for white count of 14,000 and sodium level of 110. Sodium was 132 about a year ago. Also has low phosphorus and mag levels. Review of Systems Narrative: negative Medications/Allergies Home Medications ?Medication ?Instructions ?Recorded ?Confirmed ?Last Taken ?Type lisinopril 20 mg tablet 20 mg PO DAILY 02/02/20 09/24/25 Unknown History apixaban 5 mg tablet (Eliquis) 5 mg PO BID 01/25/24 09/24/25 01/24/24 History loratadine 10 mg tablet (Claritin) 10 mg PO DAILY 01/25/24 09/24/25 Unknown History dextroamphetamine-amphetamine 20 20 mg PO TID 30 days #90 tabs 06/30/25 09/24/25 Unknown Rx mg tablet (Adderall) empagliflozin 25 mg tablet 12.5 mg PO DAILY 09/24/25 09/24/25 Unknown History (Jardiance) levothyroxine 100 mcg tablet 100 mcg PO DAILY 09/24/25 09/24/25 Unknown History metoprolol succinate 200 mg 100 mg PO DAILY 09/24/25 09/24/25 09/24/25 08:00 History tablet,extended release 24 hr oxycodone 15 mg tablet 15 mg PO Q4H 09/24/25 09/24/25 Unknown History propylene glycol (PF) 0.6 % eye 1 drp ophthalmic (eye) DAILY 09/24/25 09/24/25 Unknown History drops in a dropperette (Systane Complete PF) sitagliptin 50 mg tablet 50 mg PO DAILY 09/24/25 09/24/25 Unknown History vit C 250 mg-vit E 90 mg-zinc 40 1 cap PO BID 09/24/25 09/24/25 Unknown History mg-copper 1 [id number] capsule (PreserVision AREDS-2) Allergies Allergy/AdvReac Type Severity Reaction Status Date / Time No Known Allergies Allergy Verified 08/30/24 16:02 Current Medications Generic Name Dose Route Start Last Admin Trade Name Freq PRN Reason Stop Dose Admin Famotidine 20 mg 09/24/25 17:45 09/24/25 19:17 Famotidine 20 Mg/2 Ml Inj IVP 20 mg Q12H [place] Administration Nicotine Polacrilex 4 mg 09/24/25 17:45 09/24/25 18:03 Nicotine 4 Mg Lozenge MUCOUS MEM 4 mg Q2H PRN Administration NICOTINE CRAVINGS PFSH Acute PFSH: Medical History (Updated 09/24/25 @ 18:30 by Richelle Dow MD) Psychiatric care Memory deficit Major depressive disorder, recurrent, moderate Social History Smoking and tobacco/nicotine status: current every day tobacco/nicotine user cigarettes Vitals/I&O/Wt Last Vital Signs Temp 97.8 F 09/24/25 15:29 Pulse 81 09/24/25 19:40 Resp 16 09/24/25 19:40 BP 183/103 09/24/25 19:40 Pulse Ox 95 09/24/25 19:40 O2 Del Method Room Air 09/24/25 19:16 Weight last 48 hrs Weight 61.235 kg Physical Exam Narrative: Patient is awake alert, frail-chronic ill-appearing No acute distress On room air No JVD PERRLA S1-S2 regular rate and rhythm Lungs clear bilaterally Abdomen soft nontender No pedal edema, no rash Data 09/24/25 16:02 09/24/25 18:44 A&P Assessment and plan 1. Acute hyponatremia: Plan: 1. Hyponatremia: Acute on chronic, it seems like patient's baseline sodium is in the low 130s range but has worsened significantly down to 110 currently likely from chronic Adderall use and recent poor p.o. intake. -Initial sodium is 110 and the most recent sodium is 116( in 3 hours ) - Stopped 3% saline and started DDAVP 2 mcg every 8 hours for controlled slow Wildcat 1 kg goal rcorrection. - Asked to check sodium every 2 hours and results to be called to me. If sodium is corrected more than 116 in the next 24 hours we will start D5W Otherwise as long as sodium is 116 to 118 range in the next 24 hours we will continue to monitor sodium every 2 hours - Await urine osmolality - TSH is normal and cortisol level is slightly elevated, monitor PDMP PDMP Reviewed: Not Reviewed Consult Attestations Medical Necessity Statement: per drew Coding Level of Care Code Acute Code for Chg Fwd Diagnoses Acute hyponatremia E87.1
[2025-09-24] MEDS: magnesium sulfate premix 2 GM/50 ML PIGGYBACK IV (20:15)
[2025-09-24 20:18] LABS: Sodium 116 mmol/L (136-145)
[2025-09-24 22:07] LABS: Anion Gap 14.0 (5-19); Blood Urea Nitrogen 14 mg/dL (8-23); Calcium 8.9 mg/dL (8.5-10.5); Carbon Dioxide 28 mmol/L (22-29); Chloride 78 mmol/L (98-107); Creatinine Clr Calc Pharmacy 76.9392; Glucose 162 mg/dL (65-115); Osmolality Calculated 246 mOsm/kg (285-295); Potassium 4.0 mmol/L (3.5-5.1)
[2025-09-24 22:08] LABS: Sodium 116 mmol/L (136-145)
--- NOTE | 2025-09-24 22:56 | PC.NURSE ---
Patient arrived to ICU 3 at 1938 by wheelchair from ED. Patient alert and oriented. Transferred to bed with standby assist. Denies using assistive devices to ambulate. Patient changed into gown, settled and call light in reach.
--- NOTE | 2025-09-24 23:04 | PC.NURSE ---
Attempted to call Dr. Trinidad and notify her of patients sodium level.
--- NOTE | 2025-09-24 23:31 | PC.NURSE ---
Patient becoming very agitated. Patient was attempting to get out of bed and upon entering his room he stated he is anxious and needs something to calm him down. Patient educated that his heart rate is low and was attempting to notify provider. He became very upset and began to swear about how the doctors do not know anything. Attempts to calm patient somewhat successful, but continues to verbalize frustration at not being able to get medication to sleep, calm down, or have his adderall. Patient apologized for swearing at this nurse and explained he is not upset with me, but is upset over the situation.
[2025-09-24 23:43] LABS: Sodium 116 mmol/L (136-145)
[2025-09-25] VITALS (75 sets, daily range): BP systolic 74–224; BP diastolic 42–150; PULSE 47–130; RESP 10–29; TEMP 36.4–36.9; O2SAT 84–100
--- NOTE | 2025-09-25 01:00 | PC.NURSE ---
Provider notified of patients bradycardia and hypotension. Orders given to begin dopamine. Order placed see ARACELIS
[2025-09-25] MEDS: DOPamine drip 400 MG/250 ML PREMIX 12.23 MG IV (01:09)
[2025-09-25 01:45] LABS: Sodium 116 mmol/L (136-145)
[2025-09-25 04:53] LABS: Hematocrit 38.4 % (37-53); Hemoglobin 14.10 g/dL (11.27-16.99); Mean Corpuscular HGB Conc 36.7 g/dL (30-55); Mean Corpuscular Hemoglobin 35.4 pg (27-33); Mean Corpuscular Volume 96.5 fl (82-101); Nucleated Red Blood Cells % 0 %; Platelet Count 196 10^3/cmm (157-399); Red Blood Count 3.98 10^6/uL (3.85-5.65); White Blood Count 10.75 10^3/uL (3.29-11.43)
[2025-09-25 05:27] LABS: Sodium 116 mmol/L (136-145)
--- NOTE | 2025-09-25 05:29 | PC.NURSE ---
Dr. Pabon notified that patients metoprolol held due to patients bradycardia, hypotension, and being on dopamine.
[2025-09-25 05:55] LABS: Sodium 116 mmol/L (136-145)
--- NOTE | 2025-09-25 06:04 | PC.NURSE ---
Addendum entered by Shanda Martel RN 09/25/25 06:53: I agree with the contents of this note. Addendum entered by Melvin Weiss RN 09/25/25 06:33: I agree with the contents of this note. Original Note: Rani Martel RN and charge nurse entered patients room after hearing IV pump beeping due to an occlusion. IV was no longer patent. Patient then refused to allow [address] members to place new IV. He stated I am done. I do not want to hurt myself, but I do not want anymore medication or treatment. Patient educated on the importance of the dopamine and administration of medications to correct hyponatremia. Chiquita Weiss RN along with this nurse also talked to patient in an attempt to explain possible consequences of not treating his condition. Provider at bedside earlier in shift and discussed code status with patient who stated at that time he wanted to be an AND. He, has been alert and oriented the entirety of the shift. Answering questions appropriately, including name, date of , year, month, place and situation. When administering patients 0500 medications he knew home doses of the medications being administered. Patient was frustrated with needing treatment and expressed it openly a few times through the shift, but did apologize to this nurse and stated its not you I am just tired of all of this. Patient expressed he is tired of struggling with chronic illness and pain. He told all staff he has no plans to harm himself, but he simply does not want to continue with treatment for his current condition. Provider notified and in agreement that patient is alert and oriented. Currently patient is not expressing a desire to leave, but care is on hold at this time. Patient also stated his family does not care and does not want them notified.
[2025-09-25 07:53] LABS: Sodium 117 mmol/L (136-145)
[2025-09-25] MEDS: ondansetron 2 mg/ML SDV 2 mL 4 MG IVP (09:00)
[2025-09-25 10:53] LABS: Sodium 113 mmol/L (136-145)
[2025-09-25 12:09] LABS: Sodium 116 mmol/L (136-145)
[2025-09-25] MEDS: oxyCODONE 5 mg IR Tab/Cap 15 MG PO ×2 (12:40→16:25)
--- NOTE | 2025-09-25 13:26 | P.PN_ITS ---
Subjective 2 Subjective: feels better this Am Medications: Reviewed: Yes Vitals/I&O/Wt Last Vital Signs Temp 98.5 F 09/25/25 07:30 Pulse 62 09/25/25 12:30 Resp 19 H 09/25/25 12:40 BP 167/90 09/25/25 12:30 Pulse Ox 94 09/25/25 12:40 O2 Del Method Room Air 09/25/25 12:30 09/24/25 09/25/25 09/25/25 22:59 06:59 14:59 Intake Total 313.5 / 313.5 65.852 / 379.352 400 / 400 Output Total 650 / 650 225 / 225 Balance 313.5 / 313.5 -584.148 / -270.648 175 / 175 Weight last 48 hrs Weight 65.22 kg Weight 65.227 kg Weight 61.235 kg Physical Exam 2 Narrative: Patient is awake alert, frail-chronic ill-appearing No acute distress On room air No JVD PERRLA S1-S2 regular rate and rhythm Lungs clear bilaterally Abdomen soft nontender No pedal edema, no rash Data 09/25/25 03:27 09/25/25 11:36 A&P Assessment and plan 1. Acute hyponatremia: Plan: 1. Hyponatremia: Acute on chronic, it seems like patient's baseline sodium is in the low 130s range but has worsened significantly down to 110 currently likely from chronic Adderall use and recent poor p.o. intake. -Initial sodium is 110 and the most recent sodium is 116 - await next sodium and if na < 116 , will start Normal saline -check sodium every 2 hours . goal to corrrect up t 118 today - Await urine osmolality - TSH is normal and cortisol level is slightly elevated, monitor PDMP PDMP Reviewed: Not Reviewed Attestations 2 Medical Necessity Statement*: per drew Coding Level of Care Code Acute Code for Chg Fwd Diagnoses Acute hyponatremia E87.1
[2025-09-25 13:43] LABS: Sodium 116 mmol/L (136-145)
--- NOTE | 2025-09-25 13:55 | P.PN_ITS ---
Subjective 2 Subjective: Patient feeling much better in the morning, more oriented and alert However looks frail and weak Medications: Reviewed: Yes Vitals/I&O/Wt Last Vital Signs Temp 98.5 F 09/25/25 07:30 Pulse 62 09/25/25 12:30 Resp 19 H 09/25/25 12:40 BP 167/90 09/25/25 12:30 Pulse Ox 94 09/25/25 12:40 O2 Del Method Room Air 09/25/25 12:30 09/24/25 09/25/25 09/25/25 22:59 06:59 14:59 Intake Total 313.5 / 313.5 65.852 / 379.352 403.75 / 403.75 Output Total 650 / 650 225 / 225 Balance 313.5 / 313.5 -584.148 / -270.648 178.75 / 178.75 Weight last 48 hrs Weight 65.22 kg Weight 65.227 kg Weight 61.235 kg Physical Exam 2 Narrative: General: Alert and oriented, lying comfortably without any distress, the patient looks better than yesterday however still weak and cachectic with features of malnourishment and is unkempt, looks dry HEENT: Normocephalic, atraumatic, grossly unremarkable exam Cardio: normal rate rhythm, normal S1-S2 without any murmurs, rubs, or gallops and JVD normal Respiratory: normal vascular breathing on auscultation without any wheezes, stridor, rhonchi GI: Abdomen soft, nontender, nondistended, normoactive bowel sounds present all 4 quadrants, Neuro: Grossly neurological examination unremarkable t, delayed reflexes appreciated Behavior: Appropriate and cooperative Extremities: Adequate pulses with lower extremities chronic skin changes and bilateral pitting edema, Data 09/25/25 03:27 09/25/25 13:20 A&P Assessment and plan 1. Acute hyponatremia: Patient presented with severe generalized weakness for more than a month is unable to take his medication including Adderall and levothyroxine. Patient received hypertonic saline with correction of hyponatremia from 110-116, later on was given desmopressin and kept the level within the target range of correction within 24 hours. Nephrology on board for further management, desmopressin discontinued Continue patient on hydration with normal saline and monitor BMP every every 3 hours for sodium levels Target correction in 6 to 8 mEq per 24 hours 2. Memory deficit: Likely related to his underlying condition requiring Adderall hypothyroid for which he did not take his medications 3. Hypothyroidism: TSH normal Continue his home dose of levothyroxine 100 mcg daily 4. Hypertension: Patient blood pressure uncontrolled Patient on 20 mg lisinopril at home. To start 40 mg lisinopril as inpatient. 5. Severe malnutrition: Dietitian consult and follow the recommendation 6. Atrial fibrillation: Continue apixaban and metoprolol 100 mg daily 7. Encounter for screening involving social determinants of health (SDoH): Patient lives alone and has memory issues and therefore need tool crib manager on board to help with his further safe disposition 8. Low phosphate levels: Phosphorus correction provided and to monitor 9. Hypomagnesemia: 2 g magnesium sulfate correction provided and to monitor PDMP PDMP Reviewed: Not Reviewed Attestations 2 Medical Necessity Statement*: Patient will stay more than 2 midnights for the correction of severe hyponatremia and generalized weakness with correction of electrolytes and requiring OT PT therapy. foundry manager as well for further safe disposition postdischarge Time Spent in Patient Care: 16 - 35 minutes (>than 50% of time sp ent in counselling and/or direct pt care on unit) . Critical Care Time: The high probability of a clinically significant, sudden or life threatening deterioration, as referenced in this documentation, required my full and direct attention, intervention and personal management. The critical care time shown is in addition to time spent performing any reported separately billable procedures and includes the following: [x] Data and vital sign review and interpretation [x ] Patient assessment, examination and intervention [x] Medication orders and management [x] Patient/Family updates as able [x] Care Coordination and Documentation. Critical Care Time (min): 35 Other Attestations: Patient condition has been discussed at length with the patient/family, I have independently reviewed the chart labs imaging/diagnostics/EKG. the goals of care and code status with the patient/family/NOK/legal sales representative adding machines, and documented accordingly. The patient/family has been informed about the current condition and further plan of care. Agreed with the plan of care and understood without any language barrier. Every effort was made to ensure accuracy of document restorer. Any obvious errors or omissions should be clarified with the author of the document. Coding Level of Care Code Critical Care >/= 30 minutes Diagnoses Acute hyponatremia E87.1 Memory deficit R41.3 Hypothyroidism E03.9 Hypertension I10 Severe malnutrition E43 Atrial fibrillation I48.91 Encounter for screening involving social determinants of health (SDoH) Z13.9 Low phosphate levels E83.39 Hypomagnesemia E83.42
[2025-09-25 14:49] LABS: Anion Gap 12.0 (5-19); Blood Urea Nitrogen 19 mg/dL (8-23); Calcium 8.8 mg/dL (8.5-10.5); Carbon Dioxide 28 mmol/L (22-29); Chloride 78 mmol/L (98-107); Creatinine Clr Calc Pharmacy 61.5490; Glucose 153 mg/dL (65-115); Osmolality Calculated 243 mOsm/kg (285-295); Potassium 4.0 mmol/L (3.5-5.1)
[2025-09-25 14:56] LABS: Sodium 114 mmol/L (136-145)
[2025-09-25] MEDS: SODIUM CHLORIDE 3% IV (15:59)
[2025-09-25] MEDS: FLEXIBLE CONTAINER IV (15:59)
--- NOTE | 2025-09-25 16:39 | PC.NURSE ---
Lisinopril: Pt refused to take the entire 40 mg when first offered (1442) Discussed with pt his BP and reasons for 40mg he still refused. He stated he did not think his BP and he had always taken just 20mg, he did not want to bottom out . He did agree to reconsider the second 20 mg tablet in a couple hours. 1630: He agreed to take final pill for full 40mg dose. He stated he did not think his BP was accurate at first ,so he agreed to rest for 15-20 minutes to get another BP. 154/107He continued to argue his dose was 20 mg when he took it. This nurse explained that medications , such as BP meds, were prescribed daily and needed to be take everyday. If he took it every day it would be a more accurate picture for physician to know if it was helping or not. He concurred . He took the other 20mg tablet. He decided he would reevaluate in am when next dose was due.
[2025-09-25 17:23] LABS: Blood Urea Nitrogen 19 mg/dL (8-23); Calcium 8.8 mg/dL (8.5-10.5); Carbon Dioxide 27 mmol/L (22-29); Chloride 78 mmol/L (98-107); Creatinine Clr Calc Pharmacy 68.3878; Glucose 112 mg/dL (65-115); Osmolality Calculated 241 mOsm/kg (285-295)
[2025-09-25 17:27] LABS: Anion Gap 13.1 (5-19); Potassium 4.1 mmol/L (3.5-5.1)
[2025-09-25 17:34] LABS: Sodium 114 mmol/L (136-145)
--- NOTE | 2025-09-25 19:37 | PC.NURSE ---
Provider gave verbal orders for 10mg amlodipine stat, 5mg to begin 09/26/25 and a 21mg nicotine patch. Orders placed. See MAR
--- NOTE | 2025-09-25 19:52 | PC.NURSE ---
Shift summary; Pt alert and oriented. He answers all questions appropriately. He has been fidgety and irritable this shift. PRN Nicotine lozenges admin every 2 hrs. His home amount of OXY IR restarted today. His sodium level 113-116 this shift. NS at 75ml/hr briefly started then discontinued. 3% sodium started this afternoon. His lower legs are purple and edematous. He requires lengthy explanations and coaxing at medication admin times. He was set against Lisinopril 40mg, but he did finally agree to take 20mg each time, a few hours apart. He did allow an IV start this am, only a 22 gauge. He was concerned about his viscosity. He had a good appetite. He ate at least half of every meal. He uses the urinal a couple times this shift. Output low, urine dark yellow. He was started on a fluid restriction. He demands at least 10 oz of water with his oral medications, it will be difficult to hold him to the 1500ml.
[2025-09-25] MEDS: LORazepam 2 mg/mL INJ 1 mL IVP (19:56)
--- NOTE | 2025-09-25 20:23 | PC.NURSE ---
This nurse was helping patient attempt to put pajama bottoms back on and heard what sounded like a pill bottle in the pocket. Notified charge nurse Rani Mendez RN and Venu Barth RN present as well. Retrieved 2 bottles from patient, one white bottle that had IB written on it and it does appear to be Ibuprofen and another bottle that is a prescription for patient for Oxycodone 15mg IR. There were 11 pills in the bottle labeled ibuprofen. There were 71 in the Oxycodone bottle that shows it was filled on 09/21/25. This nurse, as well as charge nurse Rani Mendez RN counted the medications and they were placed in a bio bag with tamper seal tape. Patient is currently sitting up in bed and appears to be looking for medications. Provider, Dr. Dow notified. Went back into patients room due to bed alarm going off and patient was digging through his bag. At that point more medications were found and several personal belongings. wash house supervisor was on the unit at the time and notified. Security was called to come to the unit to go through patients bag and inventory belongings. More oxycodone were found and counted. 75.5 oxycodone were then accounted for. Rani Mendez RN charge nurse and information security risk analyst Venu Keenan inventoried all belongings and they were locked in patients coordinating locker 3.
[2025-09-25 20:28] LABS: Blood Urea Nitrogen 17 mg/dL (8-23); Calcium 9.4 mg/dL (8.5-10.5); Carbon Dioxide 26 mmol/L (22-29); Chloride 76 mmol/L (98-107); Creatinine Clr Calc Pharmacy 76.9363; Glucose 121 mg/dL (65-115); Osmolality Calculated 245 mOsm/kg (285-295)
[2025-09-25 20:29] LABS: Anion Gap 18.1 (5-19); Potassium 4.1 mmol/L (3.5-5.1)
[2025-09-25 20:31] LABS: Sodium 116 mmol/L (136-145)
--- NOTE | 2025-09-25 21:05 | PC.NURSE ---
Addendum entered by ROBE Morales 09/25/25 22:15: Stat sodium resulted at 118. not notified due to result being under parameters she gave in order for her to be notified. Original Note: called and stated to place a stat Sodium draw and to have sodium labs drawn q2h and to notify her if sodium level is above 120 through the night. Order placed.
[2025-09-25 22:06] LABS: Anion Gap 15.1 (5-19); Blood Urea Nitrogen 16 mg/dL (8-23); Calcium 9.0 mg/dL (8.5-10.5); Carbon Dioxide 28 mmol/L (22-29); Chloride 78 mmol/L (98-107); Creatinine Clr Calc Pharmacy 76.9363; Glucose 75 mg/dL (65-115); Osmolality Calculated 244 mOsm/kg (285-295); Potassium 4.1 mmol/L (3.5-5.1)
[2025-09-25 22:10] LABS: Sodium 117 mmol/L (136-145)
[2025-09-26] VITALS (133 sets, daily range): BP systolic 84–205; BP diastolic 45–148; PULSE 46–123; RESP 0–28; TEMP 36.4–36.9; O2SAT 82–99; BMI 19.5
[2025-09-26 00:13] LABS: Sodium 115 mmol/L (136-145)
[2025-09-26 02:24] LABS: Sodium 116 mmol/L (136-145)
[2025-09-26 03:59] LABS: Magnesium 1.8 mg/dL (1.7-2.3)
[2025-09-26 04:49] LABS: Sodium 117 mmol/L (136-145)
[2025-09-26 05:21] LABS: Hematocrit 39.0 % (37-53); Hemoglobin 14.20 g/dL (11.27-16.99); Mean Corpuscular HGB Conc 36.4 g/dL (30-55); Mean Corpuscular Hemoglobin 35.1 pg (27-33); Mean Corpuscular Volume 96.5 fl (82-101); Nucleated Red Blood Cells % 0 %; Platelet Count 178 10^3/cmm (157-399); Red Blood Count 4.04 10^6/uL (3.85-5.65); White Blood Count 9.86 10^3/uL (3.29-11.43)
--- NOTE | 2025-09-26 05:47 | PC.NURSE ---
Patient woke shortly before morning lab draw. He was alert and oriented. However, after ambulating him to the bedside commode and assisting lab with explaining what they were doing, patient continued to lie in bed and repeatedly exclaim I need my adderall and that will fix the entire issue. He repeated this until he fell back to sleep.
[2025-09-26 05:48] LABS: Alanine Aminotransferase 19 U/L (0-41); Albumin Level 3.9 g/dL (3.5-5.2); Alkaline Phosphatase 120 U/L (40-130); Anion Gap 16.7 (5-19); Aspartate Amino Transferase 30 U/L (0-40); Blood Urea Nitrogen 14 mg/dL (8-23); Calcium 9.0 mg/dL (8.5-10.5); Carbon Dioxide 27 mmol/L (22-29); Chloride 78 mmol/L (98-107); Creatinine Clr Calc Pharmacy 76.9363; Globulin 2.5 g/dL (1.3-4.6); Glucose 101 mg/dL (65-115); Osmolality Calculated 247 mOsm/kg (285-295); Potassium 3.7 mmol/L (3.5-5.1); Total Protein 6.4 g/dL (6.6-8.7)
[2025-09-26 05:53] LABS: Sodium 118 mmol/L (136-145)
--- NOTE | 2025-09-26 06:27 | PC.NURSE ---
Provider notified of patients current vitals, agitation, and refusal of certain medications. Provider gave orders to hold all morning medications until evaluated by dayshift provider.
[2025-09-26] MEDS: metoprolol succinate ER (24 HR) 100 mg Tablet 50 MG PO (08:52)
--- NOTE | 2025-09-26 09:18 | PC.NURSE ---
Upon morning assessment, patient is fixated on getting adderal. NUrse explained that we cannot give adderal due to his hyponatremia, as the transport truck driver believes the chronic adderal use likely contributing to the low salt levels. Patient is upset by this, but agreeable at this time. He states he is unable to function without the adderal. WIthout it, he cannot walk, he cannot sit up, he cannot talk, and he cannot eat. He wants it for a general sense of wellbeing . He believes his high blood pressures are due to his lack of adderal. When this nurse administerd famotadine, patient states that he wouldn't need famotadine if he was getting adderal.
[2025-09-26 09:50] LABS: Anion Gap 16.7 (5-19); Blood Urea Nitrogen 13 mg/dL (8-23); Calcium 8.8 mg/dL (8.5-10.5); Carbon Dioxide 26 mmol/L (22-29); Chloride 77 mmol/L (98-107); Creatinine Clr Calc Pharmacy 76.9278; Glucose 99 mg/dL (65-115); Osmolality Calculated 242 mOsm/kg (285-295); Potassium 3.7 mmol/L (3.5-5.1)
--- NOTE | 2025-09-26 09:50 | PC.NURSE ---
Pain: Patient complains of tooth pain, states it was caused by his ensure drink and likely wouldn't have happened if he had adderal. Nurse offerd pain medication, patient agreed to receive pain medication and wanted ibuprofen, but states that he has to take it in conjunction with adderal for it to be effective. Patient has acetaminophen prn which nurse administered .
[2025-09-26 10:02] LABS: Sodium 116 mmol/L (136-145)
--- NOTE | 2025-09-26 10:21 | P.PN_ITS ---
Subjective 2 Subjective: pt non cooperative Medications: Reviewed: Yes Vitals/I&O/Wt Last Vital Signs Temp 98.4 F 09/26/25 04:00 Pulse 67 09/26/25 06:40 Resp 17 09/26/25 06:40 BP 117/68 09/26/25 06:40 Pulse Ox 94 09/26/25 06:40 O2 Del Method Room Air 09/25/25 18:30 09/25/25 09/26/25 09/26/25 22:59 06:59 14:59 Intake Total 990 / 1393.75 Output Total 350 / 575 400 / 975 Balance 640 / 818.75 -400 / 418.75 Weight last 48 hrs Weight 65.2 kg Weight 65.22 kg Weight 65.227 kg Weight 61.235 kg Physical Exam 2 Narrative: Patient is awake alert, frail-chronic ill-appearing No acute distress On room air No JVD PERRLA S1-S2 regular rate and rhythm Lungs clear bilaterally Abdomen soft nontender No pedal edema, no rash Data 09/27/25 04:26 09/27/25 08:41 A&P Assessment and plan 1. Acute hyponatremia: Plan: 1. Hyponatremia: Acute on chronic, it seems like patient's baseline sodium is in the low 130s range but has worsened significantly down to 110 currently likely from chronic Adderall use and recent poor p.o. intake. -Initial sodium is 110 and the most recent sodium is 116( fluctuated between 113-118 last 24 hours ) - restarted 3% saline @ 25 cc/hr and continue till Na > 120 - Awaiting urine osmolality - on 1500 ml fluid restriction - TSH is normal and cortisol level is slightly elevated, monitor PDMP PDMP Reviewed: Not Reviewed Attestations 2 Medical Necessity Statement*: per medicne Coding Level of Care Code Acute Code for Chg Fwd Diagnoses Acute hyponatremia E87.1
--- NOTE | 2025-09-26 10:47 | PC.NURSE ---
Due to patient agitation, IV ativan was removed and nurse attempted to adminster, however, patient has refused unless he can be given adderal. Lorazepam cannot be returned to the refrigerated pyxis. Nurse placed in locked fridge below the pharmacy bins and alerterd Javi in pharmacy.
[2025-09-26] MEDS: sodium chloride 3% 100 ML in empty flexible container 1 EACH 25 ML IV (10:54)
--- NOTE | 2025-09-26 11:06 | PC.NURSE ---
Patient has been started on 3% saline. Patient only has peripheral IV access, a 22g to the right upper arm. Nurse discussed with the patient how if 3% saline infiltrates, tissue damage can occur. Nurse would like at the very least a bigger IV in a more secure vein, or preferably central acccess to prevent this complication. Patient verbalizes understanding the risks, but still refuses. Says if you would just give me Adderall, none of this would happen and I cannot live without adderall . NUrse alerted Both Dr Lara and Dr coleman. Proceed with 3% saline administration and closely monitor for infiltration,
--- NOTE | 2025-09-26 14:18 | PM.PN ---
Subjective Subjective: Patient is noncooperative and sometimes seems delirious. He has been taking oxycodone which was found in his pocket by the overnight side nurse Still having hyponatremia and on management with rigorous BMP monitoring Medications: Reviewed: Yes Vitals/I&O/Wt Last Vital Signs Temp 97.6 F 09/26/25 11:55 Pulse 54 L 09/26/25 12:20 Resp 6 L 09/26/25 12:20 BP 104/57 09/26/25 12:20 Pulse Ox 91 09/26/25 12:20 O2 Del Method Room Air 09/26/25 11:55 09/25/25 09/26/25 09/26/25 22:59 06:59 14:59 Intake Total 990 / 1393.75 200 / 200 Output Total 350 / 575 400 / 975 900 / 900 Balance 640 / 818.75 -400 / 418.75 -700 / -700 Weight last 48 hrs Weight 65.2 kg Weight 65.22 kg Weight 65.227 kg Weight 61.235 kg Physical Exam Narrative: General: Alert but disoriented and tries to sometimes go out and ask that his family is coming over he may need to go to see his family, lying comfortably without any distress, the patient looks better than yesterday however still weak and cachectic with features of malnourishment and is unkempt, looks dry HEENT: Normocephalic, atraumatic, grossly unremarkable exam Cardio: normal rate rhythm, normal S1-S2 without any murmurs, rubs, or gallops and JVD normal Respiratory: normal vascular breathing on auscultation without any wheezes, stridor, rhonchi GI: Abdomen soft, nontender, nondistended, normoactive bowel sounds present all 4 quadrants, Neuro: Grossly neurological examination unremarkable and is disoriented Behavior: Appropriate and cooperative Extremities: Adequate pulses with lower extremities chronic skin changes and bilateral pitting edema, Data 09/26/25 05:15 09/26/25 08:47 A&P Assessment and plan 1. Acute hyponatremia: Patient presented with severe generalized weakness for more than a month is unable to take his medication including Adderall and levothyroxine. Patient received hypertonic saline with correction of hyponatremia from 110-116, later on was given desmopressin and kept the level within the target range of correction within 24 hours. Nephrology on board for further management, desmopressin discontinued and further management as per nephrology plan to continue for management of acute hyponatremia Continue patient on hydration with normal saline and monitor BMP every every 3 hours for sodium levels Target correction in 6 to 8 mEq per 24 hours 2. Memory deficit: Likely related to his underlying condition requiring Adderall hypothyroid for which he did not take his medications Continue reorientation and emphasis on calming techniques 3. Hypothyroidism: TSH normal Continue his home dose of levothyroxine 100 mcg daily 4. Hypertension: Blood pressure is better controlled, however patient having low heart rate Reduce metoprolol to 25 mg daily Continue lisinopril 40 mg daily 5. Severe malnutrition: Dietitian consult and follow the recommendation 6. Atrial fibrillation: Continue apixaban Heart rate in the low range therefore to continue reduced dose of metoprolol 25 mg daily 7. Encounter for screening involving social determinants of health (SDoH): Patient lives alone and has memory issues and therefore need manager of case management on board to help with his further safe disposition 8. Low phosphate levels: Phosphorus correction provided and resolved 9. Hypomagnesemia: 2 g magnesium sulfate production provided and resolved PDMP PDMP Reviewed: Not Reviewed Attestations Medical Necessity Statement*: Patient will stay more than 2 midnights for the management of his severe hyponatremia with confusion and memory deficits and further disposition to be taken care of by the case management Time Spent in Patient Care: 16 - 35 minutes (>than 50% of time spent in counselling and/or direct pt care on unit). Critical Care Time: The high probability of a clinically significant, sudden or life threatening deterioration, as referenced in this documentation, required my full and direct attention, intervention and personal management. The critical care time shown is in addition to time spent performing any reported separately billable procedures and includes the following: [x] Data and vital sign review and interpretation [x] Patient assessment, examination and intervention [x] Medication orders and management [x] Patient/Family updates as able [x] Care Coordination and Documentation. Critical Care Time (min): 35 Other Attestations: I was unable to discuss patient current critical condition since the patient family or next of kin or guardian is not available around to discuss. The patient is disoriented. The care has been delivered in the best interest of the patient based on the patient current CODE STATUS. I have reviewed all the images/labs/investigations independently. Management as per internal based on the recommendation and guidelines and patient's current clinical condition. Coding Level of Care Code Critical Care >/= 30 minutes Diagnoses Acute hyponatremia E87.1 Memory deficit R41.3 Hypothyroidism E03.9 Hypertension I10 Severe malnutrition E43 Atrial fibrillation I48.91 Encounter for screening involving social determinants of health (SDoH) Z13.9 Low phosphate levels E83.39 Hypomagnesemia E83.42
[2025-09-26 14:22] LABS: Anion Gap 12.8 (5-19); Blood Urea Nitrogen 13 mg/dL (8-23); Calcium 8.3 mg/dL (8.5-10.5); Carbon Dioxide 27 mmol/L (22-29); Chloride 81 mmol/L (98-107); Creatinine Clr Calc Pharmacy 76.9278; Glucose 108 mg/dL (65-115); Osmolality Calculated 245 mOsm/kg (285-295); Potassium 3.8 mmol/L (3.5-5.1)
[2025-09-26 14:26] LABS: Sodium 117 mmol/L (136-145)
--- NOTE | 2025-09-26 14:59 | ECG_ITS ---
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[id number] Requested By: Richelle Dow Order Number: [id number] Reading MD: JORGE AGUILAR Measurements Intervals [place] Rate: 53 P: 0 MO: 0 QRS: -29 QRSD: 142 T: -19 QT: 477 QTc: 451 Interpretive Statements ATRIAL FIBRILLATION WITH SLOW VENTRICULAR RESPONSE BORDERLINE LEFT AXIS DEVIATION [QRS AXIS < -20] RIGHT BUNDLE BRANCH BLOCK [120+ ms QRS DURATION, UPRIGHT V1, 40+ ms S IN I/aVL/V4/V5/V6] Compared to ECG 01/25/2024 08:00:05 No significant changes Electronically Signed On 09-30-2025 21:13:44 CDT by JORGE AGUILAR [email or web address]
--- NOTE | 2025-09-26 15:09 | PC.NURSE ---
Addendum entered by Kishor Tan RN 09/26/25 15:11: Peripheral IV to right upper arm has become more sluggish to push, but still remains functional. Nurse explained to the patient that his IV access is slowly becoming occluded and he will need a new one soon. Nurse attempted to get a new IV started, but patient adamantly refused. Stated that he wants adderall and nothing we are going to do will help unless we give him adderall. Nurse again educated patient on risks of IV infiltration, and if IV becomes occluded that he will not be able to receive adequate treatment. Patient again states that he wants us to give him adderall. Original Note: Sodium: Sodium levels from 1400 resulted. went from 116 to 117 after 3 hours of 3% saline. Nurse updated Dr bullock, She has ordered to continue 3% saline until sodium levels reach 120.
--- NOTE | 2025-09-26 15:16 | PC.NURSE ---
Bradycardia: WHIle sleeping, patient is bradycardiac, often in the 40-mid 50's. Mean arterial pressures have remained 65 or greater. Mentation is unchanged: has slept for most of the day, but is easily awaken. Oriented to person, place, time, and situation, verbalizes his needs, and is fixated on getting adderall. EKG performed, shows afib with a slow ventricular response, right bundle branch block. Nurse alerted Dr Dow. Future doses of metoprolol have been discontinued, cardiology will be consulted. Continue to monitor and will reassess treatments if he becomes symptomatic.
--- NOTE | 2025-09-26 16:30 | PC.NURSE ---
At 1530, patient became very upset about not getting adderall, animated in his speech but not aggressive. Making statements such as life is not worth living if i can't get adderall , my life will never be the same without adderall , I can't believe this has happened to me . He has started more frequently refusing self care, is now refusing to eat or drink unless he gets adderall. Though he also reports no appetite. Patient is frequently talking about not having adderall as though it was a close family member that has . Nurse has notified Dr Dow of the above information, he will consult psych.
[2025-09-26 17:06] LABS: Blood Urea Nitrogen 12 mg/dL (8-23); Calcium 8.1 mg/dL (8.5-10.5); Carbon Dioxide 25 mmol/L (22-29); Chloride 83 mmol/L (98-107); Creatinine Clr Calc Pharmacy 76.9278; Glucose 106 mg/dL (65-115); Osmolality Calculated 240 mOsm/kg (285-295)
[2025-09-26 17:14] LABS: Anion Gap 11.0 (5-19); Potassium 4.0 mmol/L (3.5-5.1); Sodium 115 mmol/L (136-145)
[2025-09-26] MEDS: oxyCODONE 5 mg IR Tab/Cap 15 MG PO ×2 (18:46→23:18)
--- NOTE | 2025-09-26 19:38 | PC.NURSE ---
Methylphenidate: Near end of shift Dr coleman informed nurse that we will start methylphenidate tommorow morning per recommendation of psychiatry. NUrse informed the patient of this. Patient became suddenly much more awake and alert upon hearing this. He ate most of his dinner despite earlier saying he was incapable of doing so without adderall. Patient became more compliant with care at this time as well. DUe to patient's improved mood, nurse again attempted to get another IV. Explained to the patient that he is receiving 3% saline through a small periphereal IV which is a day old. THough it is functional at this time, nurse would like a newer and larger IV. Explained concerns for infiltration and extravisation. Patient refused saying that if this one is working fine, why do we need another. Nurse explained the desire to be proactive with his care to prevent complications. At this point the patient became angry at this nurse and refused further discussion about a new IV.
--- NOTE | 2025-09-26 19:44 | PC.NURSE ---
Patient behavior: Near end of shift, patient started to report severe generalized pain and was requesting oxycodone. Was very tearful and angry. Another nurse administrated oxycodone for pain, upon administration, the patient told the other nurse to Get the fuck out of here
--- NOTE | 2025-09-26 19:46 | PC.NURSE ---
SHift SUmmary: Bradycardia: Patient is bradycardic into the 40/50's while asleep. Heart rate within normal range when awake. Metoprolol discontinued, cardiology consulted. Behavior: patient's behavior has been variable throughout the day. Mostly sleeping in bed, with bouts of anger and sadness. Very upset over not getting adderall. Refusing care frequently, verbally aggressive with staff at times, tearful at other times. Sodium: Sodium remains low, started on 3% saline. Saline is running through a small peripheral IV. Nurse has educated the patient on need for a new IV with less risk of infiltration, but patient adamantly refuses. IV is functional at this time, and nurse has made many attempts to get better access. BMP q3 hours.
[2025-09-26 20:37] LABS: Blood Urea Nitrogen 12 mg/dL (8-23); Calcium 8.1 mg/dL (8.5-10.5); Carbon Dioxide 24 mmol/L (22-29); Chloride 86 mmol/L (98-107); Creatinine Clr Calc Pharmacy 76.9278; Glucose 200 mg/dL (65-115); Osmolality Calculated 253 mOsm/kg (285-295)
[2025-09-26 20:41] LABS: Sodium 119 mmol/L (136-145)
[2025-09-26 20:42] LABS: Anion Gap 13.5 (5-19); Potassium 4.5 mmol/L (3.5-5.1)
[2025-09-26 23:51] LABS: Anion Gap 12.2 (5-19); Blood Urea Nitrogen 12 mg/dL (8-23); Calcium 8.8 mg/dL (8.5-10.5); Carbon Dioxide 29 mmol/L (22-29); Chloride 87 mmol/L (98-107); Creatinine Clr Calc Pharmacy 76.9278; Glucose 110 mg/dL (65-115); Osmolality Calculated 258 mOsm/kg (285-295); Potassium 4.2 mmol/L (3.5-5.1); Sodium 124 mmol/L (136-145)
[2025-09-27] VITALS (34 sets, daily range): BP systolic 84–189; BP diastolic 52–119; PULSE 38–113; RESP 12–26; TEMP 36.3–37; O2SAT 92–100
[2025-09-27 01:47] LABS: Anion Gap 11.1 (5-19); Blood Urea Nitrogen 13 mg/dL (8-23); Calcium 8.3 mg/dL (8.5-10.5); Carbon Dioxide 27 mmol/L (22-29); Chloride 88 mmol/L (98-107); Creatinine Clr Calc Pharmacy 76.9278; Glucose 73 mg/dL (65-115); Osmolality Calculated 253 mOsm/kg (285-295); Potassium 4.1 mmol/L (3.5-5.1); Sodium 122 mmol/L (136-145)
[2025-09-27] MEDS: oxyCODONE 5 mg IR Tab/Cap 15 MG PO ×5 (03:36→21:00)
[2025-09-27 04:34] LABS: Hematocrit 35.3 % (37-53); Hemoglobin 12.40 g/dL (11.27-16.99); Mean Corpuscular HGB Conc 35.1 g/dL (30-55); Mean Corpuscular Hemoglobin 35.2 pg (27-33); Mean Corpuscular Volume 100.3 fl (82-101); Nucleated Red Blood Cells % 0 %; Platelet Count 162 10^3/cmm (157-399); Red Blood Count 3.52 10^6/uL (3.85-5.65); White Blood Count 7.38 10^3/uL (3.29-11.43)
[2025-09-27 04:55] LABS: Alanine Aminotransferase 13 U/L (0-41); Albumin Level 3.1 g/dL (3.5-5.2); Alkaline Phosphatase 114 U/L (40-130); Anion Gap 11.0 (5-19); Aspartate Amino Transferase 21 U/L (0-40); Blood Urea Nitrogen 13 mg/dL (8-23); Calcium 8.4 mg/dL (8.5-10.5); Carbon Dioxide 28 mmol/L (22-29); Chloride 88 mmol/L (98-107); Creatinine Clr Calc Pharmacy 76.9278; Globulin 1.9 g/dL (1.3-4.6); Glucose 81 mg/dL (65-115); Osmolality Calculated 255 mOsm/kg (285-295); Potassium 4.0 mmol/L (3.5-5.1); Sodium 123 mmol/L (136-145); Total Protein 5.0 g/dL (6.6-8.7)
[2025-09-27 09:27] LABS: Anion Gap 14.7 (5-19); Blood Urea Nitrogen 11 mg/dL (8-23); Calcium 9.0 mg/dL (8.5-10.5); Carbon Dioxide 27 mmol/L (22-29); Chloride 86 mmol/L (98-107); Creatinine Clr Calc Pharmacy 77.0549; Glucose 216 mg/dL (65-115); Osmolality Calculated 264 mOsm/kg (285-295); Potassium 3.7 mmol/L (3.5-5.1); Sodium 124 mmol/L (136-145)
--- NOTE | 2025-09-27 10:53 | P.PN_ITS ---
Subjective 2 Subjective: feels better Medications: Reviewed: Yes Vitals/I&O/Wt Last Vital Signs Temp 98 F 09/27/25 08:00 Pulse 94 09/27/25 08:00 Resp 17 09/27/25 08:00 BP 115/67 09/27/25 07:00 Pulse Ox 94 09/27/25 08:00 O2 Del Method Room Air 09/27/25 06:30 09/26/25 09/27/25 09/27/25 22:59 06:59 14:59 Intake Total 300 / 500 727.5 / 1227.5 240 / 240 Output Total 900 / 1800 625 / 2425 Balance -600 / -1300 102.5 / -1197.5 240 / 240 Weight last 48 hrs Weight 65.5 kg Weight 65.5 kg Weight 65.2 kg Physical Exam 2 Narrative: Patient is awake alert, frail-chronic ill-appearing No acute distress On room air No JVD PERRLA S1-S2 regular rate and rhythm Lungs clear bilaterally Abdomen soft nontender No pedal edema, no rash Data 09/27/25 04:26 09/27/25 08:41 A&P Assessment and plan 1. Acute hyponatremia: Plan: 1. Hyponatremia: Acute on chronic, it seems like patient's baseline sodium is in the low 130s range but has worsened significantly down to 110 currently likely from chronic Adderall use and recent poor p.o. intake. -Initial sodium is 110 and the most recent sodium is 124 - s/p 3% saline - dcd now - urine osmolality low -c/w volume depletion or polydipsia - on 1500 ml fluid restriction - added salt tabs today - TSH is normal and cortisol level is slightly elevated, monitor Can DC home in am if Na level > 128 PDMP PDMP Reviewed: Not Reviewed Attestations 2 Medical Necessity Statement*: per medicne Coding Level of Care Code Acute Code for Chg Fwd Diagnoses Acute hyponatremia E87.1
[2025-09-27 13:40] LABS: Anion Gap 13.5 (5-19); Blood Urea Nitrogen 13 mg/dL (8-23); Calcium 8.8 mg/dL (8.5-10.5); Carbon Dioxide 28 mmol/L (22-29); Chloride 86 mmol/L (98-107); Creatinine Clr Calc Pharmacy 68.4932; Glucose 144 mg/dL (65-115); Osmolality Calculated 261 mOsm/kg (285-295); Potassium 3.5 mmol/L (3.5-5.1); Sodium 124 mmol/L (136-145)
--- NOTE | 2025-09-27 16:33 | PM.PN ---
Subjective Subjective: Patient overall feeling better after having his methylphenidate, he has been taking Adderall for more than 15 years for his chronic Lyme disease. And has been totally dependent on it. Patient has good appetite and is cheerful today Medications: Reviewed: Yes Vitals/I&O/Wt Last Vital Signs Temp 97.8 F 09/27/25 12:00 Pulse 113 H 09/27/25 15:00 Resp 25 H 09/27/25 15:00 BP 137/81 09/27/25 15:00 Pulse Ox 92 09/27/25 15:00 O2 Del Method Room Air 09/27/25 12:00 09/27/25 09/27/25 09/27/25 06:59 14:59 22:59 Intake Total 727.5 / 1227.5 480 / 480 Output Total 625 / 2425 1400 / 1400 Balance 102.5 / -1197.5 -920 / -920 Weight last 48 hrs Weight 65.5 kg Weight 65.5 kg Weight 65.2 kg Physical Exam Narrative: General: Alert and oriented to time place and person, was having his breakfast, lying comfortably without any distress, the patient looks better than yesterday however still weak and cachectic with features of malnourishment and is unkempt, looks dry HEENT: Normocephalic, atraumatic, grossly unremarkable exam Cardio: normal rate rhythm, normal S1-S2 without any murmurs, rubs, or gallops and JVD normal Respiratory: normal vascular breathing on auscultation without any wheezes, stridor, rhonchi GI: Abdomen soft, nontender, nondistended, normoactive bowel sounds present all 4 quadrants, Neuro: Grossly neurological examination unremarkable and is disoriented Behavior: Appropriate and cooperative Extremities: Adequate pulses with lower extremities chronic skin changes and bilateral pitting edema, Data 09/27/25 04:26 09/27/25 13:17 A&P Assessment and plan 1. Acute hyponatremia: Patient presented with severe generalized weakness for more than a month is unable to take his medication including Adderall and levothyroxine. Patient received hypertonic saline with correction of hyponatremia from 110-116, later on was given desmopressin and kept the level within the target range of correction within 24 hours. Nephrology on board for further management, desmopressin discontinued and further management as per nephrology plan to continue for management of acute hyponatremia Discontinue 3% saline and with fluid restriction of 1500 mL/day, added salt tablets as per nephrology plan To discharge home if sodium level is above 128 as per nephrology plan 2. Memory deficit: Likely related to his underlying condition requiring Adderall hypothyroid for which he did not take his medications Continue reorientation and emphasis on calming techniques 3. Hypothyroidism: TSH normal Continue his home dose of levothyroxine 100 mcg daily 4. Hypertension: Blood pressure is better controlled, however patient having low heart rate which was likely related to his withdrawal effect from Adderall, started on methylphenidate and resume his beta-blockers metoprolol 50 mg daily. Continue lisinopril 40 mg daily 5. Severe malnutrition: Dietitian consult and follow the recommendation 6. Atrial fibrillation: Continue apixaban Resume metoprolol 50 mg daily since the patient is on methylphenidate and is a stimulant that can increase the heart rate 7. Encounter for screening involving social determinants of health (SDoH): Patient lives alone and has memory issues and therefore need rehabilitation caseworker on board to help with his further safe disposition PDMP PDMP Reviewed: Not Reviewed Attestations Medical Necessity Statement*: Patient will stay overnight for the management of hyponatremia currently getting better and further address the social determinants of health with the rehabilitation caseworker Time Spent in Patient Care: 16 - 35 minutes (>than 50% of time spent in counselling and/or direct pt care on unit). Other Attestations: Patient condition has been discussed at length with the patient/family, I have independently reviewed the chart labs imaging/diagnostics/EKG. the goals of care and code status with the patient/family/NOK/legal patient service representative, and documented accordingly. The management has been done according to the current clinical condition with respect to patient goals of care and based on recommendations/guidelines. The patient/family has been informed about the current condition and further plan of care. Agreed with the plan of care and understood without any language barrier. Every effort was made to ensure accuracy of doctor of naprapathic medicine. Any obvious errors or omissions should be clarified with the author of the document. Coding Level of Care Code 51193 Diagnoses Acute hyponatremia E87.1 Memory deficit R41.3 Hypothyroidism E03.9 Hypertension I10 Severe malnutrition E43 Atrial fibrillation I48.91 Encounter for screening involving social determinants of health (SDoH) Z13.9
--- NOTE | 2025-09-27 16:39 | PC.SOCIAL ---
*IMM* copy of IMM was gave to patient, dated and initialed in chart.
[2025-09-27 19:00] LABS: Blood Urea Nitrogen 13 mg/dL (8-23); Calcium 9.1 mg/dL (8.5-10.5); Carbon Dioxide 28 mmol/L (22-29); Chloride 87 mmol/L (98-107); Creatinine Clr Calc Pharmacy 77.0549; Glucose 141 mg/dL (65-115); Osmolality Calculated 262 mOsm/kg (285-295); Sodium 125 mmol/L (136-145)
[2025-09-27 19:05] LABS: Anion Gap 13.9 (5-19); Potassium 3.9 mmol/L (3.5-5.1)
[2025-09-27 20:16] LABS: Estmated Average Glucose 134; Hemoglobin A1C 6.3 % (4.0-6.0)
[2025-09-28] VITALS (13 sets, daily range): BP systolic 141–180; BP diastolic 77–142; PULSE 68–120; RESP 11–21; TEMP 36.3–36.5; O2SAT 90–99
[2025-09-28] MEDS: oxyCODONE 5 mg IR Tab/Cap 15 MG PO ×2 (01:14→05:22)
[2025-09-28] MEDS: metoprolol succinate ER (24 HR) 50 mg Tablet PO (04:56)
[2025-09-28 05:37] LABS: Hematocrit 38.5 % (37-53); Hemoglobin 13.50 g/dL (11.27-16.99); Mean Corpuscular HGB Conc 35.1 g/dL (30-55); Mean Corpuscular Hemoglobin 34.5 pg (27-33); Mean Corpuscular Volume 98.5 fl (82-101); Nucleated Red Blood Cells % 0 %; Platelet Count 202 10^3/cmm (157-399); Red Blood Count 3.91 10^6/uL (3.85-5.65); White Blood Count 7.35 10^3/uL (3.29-11.43)
[2025-09-28 05:57] LABS: Anion Gap 14.2 (5-19); Blood Urea Nitrogen 10 mg/dL (8-23); Calcium 9.2 mg/dL (8.5-10.5); Carbon Dioxide 27 mmol/L (22-29); Chloride 95 mmol/L (98-107); Creatinine Clr Calc Pharmacy 77.0549; Glucose 137 mg/dL (65-115); Osmolality Calculated 275 mOsm/kg (285-295); Potassium 4.2 mmol/L (3.5-5.1); Sodium 132 mmol/L (136-145)
[2025-09-28] MEDS: hyDRALAzine 20 mg/mL INJ 1 mL 10 MG IVP (09:27)
--- NOTE | 2025-09-28 11:27 | P.DS_ITS ---
Discharge Providers Date of Admission: 09/24/25 17:18 Date of Discharge: September 28, 2025 Attending Provider at Admission: Richelle Dow MD Attending Provider at Discharge: Richelle Dow MD Primary Care Provider: Jodie Silva MD Diagnoses at Discharge Discharge Diagnosis 1. Acute hyponatremia: 2. Memory deficit: 3. Hypothyroidism: 4. Hypertension: 5. Severe malnutrition: 6. Atrial fibrillation: 7. Encounter for screening involving social determinants of health (SDoH): Reason for Visit Reason for Visit: weakness Brief History: As per the previous notes and the patient Stephen Menjivar is a 79 year old male with past medical history of hypothyroidism, apixaban for atrial fibrillation, diabetes mellitus, hypertension, memory deficit, presented with, increasing weakness over 1 month. He has been on Adderall and requires Adderall for his proper functioning. The patient also reported that he ran out of his Adderall for more than a month and he was unable to take his rest of his medications including levothyroxine apixaban and rest of the medications accordingly since he was missing the doses and could not remember to take it. The patient did not report any fevers, chills, shortness of breath, abdominal pain, diarrhea in the recent few days. However he was mildly nauseous from the last 1 to 2 days. There was no change in his urinary or bowel habits. Patient also reported poor appetite and getting weaker and weaker from more than a month or so. He lives alone and there is no one to take care of him. No orthopnea or PND Rest of the review of system unremarkable Hospital Course Hospital Course During patient hospital stay nephrology was consulted for his acute hyponatremia status with confusion. He was kept in ICU for further management. Hypertonic saline management was done along with management of overcorrection with desmopressin was done. Sodium level corrected without any complication slowly over 2 to 3 days with further management of his ongoing of bradycardia and hypotension and hypertension that were related to his sodium levels more or less also with dehydration and other unknown factors. His mentation improved. His sodium level also improved and as per nephrology plan with sodium level above 128, the patient is safe for discharge. Rest of his stability was established before proceeding with discharge. Of note: The patient was taking Adderall for his chronic Lyme disease since more than 15 years and ran out of it from the last 1 month therefore it was mentioned and treated with methylphenidate as inpatient which further improved his overall clinical condition. The [facility] and therefore was discharged with control dose of Adderall in 3 to 4 days to be followed with his primary care for further continuity of his care. He was further emphasized on taking his medications regularly that include levothyroxine Eliquis and rest of the medications for better blood pressure control. Amlodipine 10 mg was added since he is on Addera ll and it can cause uncontrolled hypertension. The patient was made aware about his clinical condition and medication were reconciled and appropriate referrals were provided. Patient condition has been discussed at length with the patient/family, I have independently reviewed the chart labs imaging/diagnostics/EKG. the goals of care and code status with the patient/family/NOK/legal sales representative, and documented accordingly. The management has been done according to the current clinical condition with respect to patient goals of care and based on recommendations/guidelines. The patient/family has been informed about the current condition and further plan of care. Agreed with the plan of care and understood without any language barrier. Every effort was made to ensure accuracy of coke crusher operator. Any obvious errors or omissions should be clarified with the author of the document. Physical Exam Narrative: General: Alert and oriented to time place and person, was having his breakfast, lying comfortably without any distress, the patient looks better than yesterday however still weak and cachectic with features of malnourishment and is unkempt, looks dry HEENT: Normocephalic, atraumatic, grossly unremarkable exam Cardio: normal rate rhythm, normal S1-S2 without any murmurs, rubs, or gallops and JVD normal Respiratory: normal vascular breathing on auscultation without any wheezes, stridor, rhonchi GI: Abdomen soft, nontender, nondistended, normoactive bowel sounds present all 4 quadrants, Neuro: Grossly neurological examination unremarkable and is disoriented Behavior: Appropriate and cooperative Extremities: Adequate pulses with lower extremities chronic skin changes and bilateral pitting edema, Discharge Data Studies Completed and Pending Completed Studies During Hospitalization Category Date Time Status XR chest 1V portable [id number] Stat Exams 09/24/25 17:12 Completed Radiology Impressions Chest X-Ray 09/24/25 17:12 IMPRESSION: Small focal opacity in the right lateral lower lung field partially obscured by the diaphragm may represent atelectasis. No major consolidation. Laboratory Results WBC 7.35 10^3/uL (3.29-11.43) 09/28/25 05:07 RBC 3.91 10^6/uL (3.85-5.65) 09/28/25 05:07 Hgb 13.50 g/dL (11.27-16.99) 09/28/25 05:07 Hct 38.5 % (37-53) 09/28/25 05:07 MCV 98.5 fl (82-101) 09/28/25 05:07 MCH 34.5 pg (27-33) H 09/28/25 05:07 MCHC 35.1 g/dL (30-55) 09/28/25 05:07 RDW 14.0 % (12.1-15.1) 09/28/25 05:07 Plt Count 202 10^3/cmm (157-399) 09/28/25 05:07 MPV 9.4 fL (7.4-10.4) 09/28/25 05:07 Neut % (Auto) 73.5 % 09/28/25 05:07 Lymph % (Auto) 9.4 % 09/28/25 05:07 [place] % (Auto) 14.6 % 09/28/25 05:07 Eos % (Auto) 0.5 % 09/28/25 05:07 Baso % (Auto) 0.5 % 09/28/25 05:07 Neut # (Auto) 5.40 10^3/uL (1.8-7.7) 09/28/25 05:07 Lymph # (Auto) 0.7 10^3/uL (0.8-4.8) L 09/28/25 05:07 [place] # (Auto) 1.1 10^3/uL (0.2-0.9) H 09/28/25 05:07 Eos # (Auto) 0.0 10^3/uL (0.0-0.8) 09/28/25 05:07 Baso # (Auto) 0.0 10^3/uL (0.0-0.1) 09/28/25 05:07 Nucleated RBC % (auto) 0 % 09/28/25 05:07 Nucleated RBCs # 0.0 /100WBC 09/28/25 05:07 Sodium 132 mmol/L (136-145) L 09/28/25 05:07 Potassium 4.2 mmol/L (3.5-5.1) 09/28/25 05:07 Chloride 95 mmol/L (98-107) L 09/28/25 05:07 Carbon Dioxide 27 mmol/L (22-29) 09/28/25 05:07 Anion Gap 14.2 (5-19) 09/28/25 05:07 BUN 10 mg/dL (8-23) 09/28/25 05:07 Creatinine 0.7 mg/dL (0.7-1.2) 09/28/25 05:07 GFR Calculation Not Reportable 09/28/25 05:07 Glucose 137 mg/dL (65-115) H 09/28/25 05:07 POC Glucose 157 mg/dL (70-110) H 09/28/25 08:05 Estimat Average Glucose 134 09/27/25 04:26 Hemoglobin A1c 6.3 % (4.0-6.0) H 09/27/25 04:26 Calculated Osmolality 275 mOsm/kg (285-295) L 09/28/25 05:07 Uric Acid 2.4 mg/dL (3.4-7.0) L 09/24/25 16:02 Calcium 9.2 mg/dL (8.5-10.5) 09/28/25 05:07 Phosphorus 2.5 mg/dL (2.5-4.5) 09/26/25 03:21 Magnesium 1.8 mg/dL (1.7-2.3) 09/26/25 03:21 Total Bilirubin 0.6 mg/dL (0.15-1.2) 09/27/25 04:26 AST 21 U/L (0-40) 09/27/25 04:26 ALT 13 U/L (0-41) 09/27/25 04:26 Alkaline Phosphatase 114 U/L (40-130) 09/27/25 04:26 Total Protein 5.0 g/dL (6.6-8.7) L D 09/27/25 04:26 Albumin 3.1 g/dL (3.5-5.2) L 09/27/25 04:26 Globulin 1.9 g/dL (1.3-4.6) 09/27/25 04:26 Triglycerides 33 mg/dL (0-150) 09/24/25 18:44 Cholesterol 169 mg/dL (0-200) 09/24/25 18:44 LDL Cholesterol, Calc 36 mg/dL (50-129) L 09/24/25 18:44 HDL Cholesterol 126 mg/dL (60-100) H 09/24/25 18:44 LDL/HDL Ratio 0.29 RATIO (0.00-3.22) 09/24/25 18:44 Cholesterol/HDL Ratio 1.34 mg/dL (1.0-5.00) 09/24/25 18:44 TSH 3.45 uIU/mL (0.27-4.20) 09/24/25 16:02 Random Cortisol 20.34 ug/dL (2.47-19.5) H 09/24/25 16:02 Urine Color Yellow (Yellow) 09/24/25 16:34 Urine Appearance Clear (CLEAR) 09/24/25 16:34 Urine pH 6.5 (5-7) 09/24/25 16:34 Ur Specific [place] 1.006 (1.005-1.030) 09/24/25 16:34 Urine Protein Negative (Negative) 09/24/25 16:34 Urine Glucose (UA) Trace (Normal) H 09/24/25 16:34 Urine Ketones Trace (Negative) 09/24/25 16:34 Urine Blood Negative (Negative) 09/24/25 16:34 Urine Nitrate Negative (Negative) 09/24/25 16:34 Urine Bilirubin Negative (Negative) 09/24/25 16:34 Urine Urobilinogen 0.2 mg/dL (Negative) 09/24/25 16:34 Ur Leukocyte Esterase Negative (Negative) 09/24/25 16:34 Urine RBC 0-2 /hpf (0-2) 09/24/25 16:34 Urine WBC 0-5 /hpf (0-5) 09/24/25 16:34 Ur Squamous Epith Cells 0-5 /hpf (0-5) 09/24/25 16:34 Amorphous Sediment Not Reportable 09/24/25 16:34 Urine Bacteria None seen /hpf (NONE) 09/24/25 16:34 Hyaline Casts 0-4 /lpf H 09/24/25 16:34 Urine Osmolality 201 mOsm/kg (50-1200) 09/24/25 16:34 Ur Random Sodium 32 mmol/L 09/24/25 16:34 Urine Opiates Screen Negative ng/mL (Negative) 09/24/25 16:34 Ur Barbiturates Screen Negative ng/mL (Negative) 09/24/25 16:34 Ur Phencyclidine Scrn Negative ng/mL (Negative) 09/24/25 16:34 Ur Amphetamines Screen Negative ng/mL (Negative) 09/24/25 16:34 U Benzodiazepines Scrn Negative ng/mL (Negative) 09/24/25 16:34 Urine Cocaine Screen Negative ng/mL (Negative) 09/24/25 16:34 U Marijuana (THC) Screen Negative ng/mL (Negative) 09/24/25 16:34 Vitals Last Vital Signs Temp 97.6 F 09/28/25 08:00 Pulse 95 09/28/25 10:00 Resp 13 09/28/25 08:00 BP 143/96 09/28/25 10:00 Pulse Ox 96 09/28/25 07:00 O2 Del Method Room Air 09/28/25 08:00 Discharge Plan Discharge Patient Disposition: Home Condition: Stable Prescriptions: New amlodipine 10 mg tablet 10 mg PO DAILY Qty: 60 0RF dextroamphetamine-amphetamine [Adderall] 20 mg tablet 20 mg PO TID 4 Days Qty: 12 0RF Rx Instructions: administer doses at least 4-6 hours apart and to use in the morning 8am, 12pm, 15pm limited dose provided since patient ran out of his meds and is taking it chronically and need to see his primary for further refills Continued dextroamphetamine-amphetamine [Adderall] 20 mg tablet 20 mg PO TID 30 Days Qty: 90 0RF Rx Instructions: Take one tablet three times per day loratadine [Claritin] 10 mg Tablet 10 mg PO DAILY Eliquis 5 mg Tablet 5 mg PO BID metoprolol succinate 200 mg Tablet Extended Release 24 Hr 100 mg PO DAILY oxycodone 15 mg tablet 15 mg PO Q4H levothyroxine 100 mcg Tablet 100 mcg PO DAILY PreserVision AREDS-2 250-90-40-1 mg capsule 1 cap PO BID Jardiance 25 mg Tablet 12.5 mg PO DAILY sitagliptin 50 mg Tablet 50 mg PO DAILY Systane Complete PF 0.6 % dropperette 1 drp OPHTHALMIC (EYE) DAILY Rx Instructions: both eyes Changed lisinopril 20 mg tablet 40 mg PO DAILY Qty: 60 0RF Spa Experience Coordinator OK for DC: Nephrology Discharge Order = DC NOW: Discharge Order (Routine); Ordered 09/28/25 Ordered By: Richelle Dow Other Ambulatory Orders: DME: [employer] (Order) Location: None Selected Ordered By: Richelle Dow Referrals: Jodie Silva MD [Primary Care Provider, [facility]] - 4-7 days Referral Note: post discharge follow up, had severe hyponatremia, the patient has been on Adderall for chronic Lyme disease since 15 yrs or more and is dependent on it Customer Service Teller has called [facility] [place] ,to schedule appointment ,scheduling [employer] will send message to [facility] to schedule appointment ./psych tele. Discharge Diet: Usual diet Discharge Activity: Limit activity as instructed Patient Instructions: Amlodipine (By mouth), Amphetamine/Dextroamphetamine (By mouth) (Adderall, Adderall XR,..., Malnutrition (DC), Hyponatremia (DC), Hypertension (DC), Fluid Restriction (DC), Fall Prevention (DC), Opioid Safety, Patient Portal & Makayla Instructions Discharge Attestations Time Spent in Discharge Care*: critical care time Critical Care Time (min): 35 Specific Discharge Activities: educating patient, educating and/or supporting family/caregiver, discussing with pcp/other providers, discussing with jake duenas/social workers/dc planners, documenting/other paperwork and evaluating patient/reviewing data Status at Discharge: Cognitive status at discharge: cognitively intact , Behavioral status at discharge: cooperative , Functional status at discharge: independent ambulation , Overall status at discharge: patient is back to baseline Quality Metrics Clinical Quality Measures [ No reported AMI, CVA or VTE this stay] Coding Level of Care Code Critical Care >/= 30 minutes Diagnoses Acute hyponatremia E87.1 Memory deficit R41.3 Hypothyroidism E03.9 Hypertension I10 Severe malnutrition E43 Atrial fibrillation I48.91 Encounter for screening involving social determinants of health (SDoH) Z13.9
--- NOTE | 2025-09-28 11:54 | PC.NURSE ---
Discharge: Patient Discharged. IV removed. Patient left with all belongings, which include backpack, wallet, $900 jean, car [place], oxycodone, cellphone, and checkbooks. Educated patient on upcoming appointments and new prescriptions. [facility]. They have already called the patient for initial contact and will arrange a specific date and time. This nurse strongly encouraged the patient to call again tommorow to verify and appointment time, as his primary will need to renew his Adderall prescription. We have been able to get him 4 days worth of adderall, but cannot legally prescribe any more. Medications sent to [facility]. Patient refused vitals to be checked before discharge. He is alert and oriented to person, place, time, and situation. Walked to vehicle, accompanied by nurse and family member. Will be driven home by his daughter.
== END 2025-09-28 11:59 | disposition home health service (06) | DRG 640 ==
LOC: ER 17:46 → ICU 18:11
PROVIDERS: Hospitalist; Internal Medicine; Admitting Provider Student in an Organized Health Care Education/Training Program; Emergency Provider Physician Assistant; PCP Family Medicine; Visit Provider Student in an Organized Health Care Education/Training Program
DX: E87.1 Hypo-osmolality and hyponatremia (principal); E43 Unspecified severe protein-calorie malnutrition; Z68.1 Body mass index [BMI] 19.9 or less, adult; A69.20 Lyme disease, unspecified; F33.1 Major depressive disorder, recurrent, moderate; R41.3 Other amnesia; E03.9 Hypothyroidism, unspecified; I10 Essential (primary) hypertension; I48.91 Unspecified atrial fibrillation; E11.9 Type 2 diabetes mellitus without complications; T43.626A Underdosing of amphetamines, initial encounter; R00.1 Bradycardia, unspecified; I95.9 Hypotension, unspecified; E86.0 Dehydration; E83.42 Hypomagnesemia; F17.210 Nicotine dependence, cigarettes, uncomplicated; Z91.128 Patient's intentional underdosing of medication regimen for other reason; Z79.01 Long term (current) use of anticoagulants; Z79.899 Other long term (current) drug therapy; Z79.85 Long-term (current) use of injectable non-insulin antidiabetic drugs; Z79.84 Long term (current) use of oral hypoglycemic drugs
CPT/HCPCS: 36415; 36416; 71045; 80048; 80053; 80061; 80306; 81001; 82533; 82962; 83036; 83735; 83935; 84100; 84295; 84300; 84443; 84550; 85025; 93005; 96361; 96372; 96374; 96375; 97161; 97165; 97530; 97535; 99285; J0360; J1265; J1815; J2060; J2405; J2597; J3475; J3490; J7030; J7131; J9999; Q3014